=== PATIENT | male | born 1950 | race Caucasian/White ===

== ENCOUNTER 2020-03-09 14:06 | Outpatient (CLI) | payer MEDICARE, SELFPAY ==
[2020-03-09 15:24] LABS: Alanine Aminotransferase 27 U/L (16-63); Albumin Level 3.6 g/dL (3.4-5.0); Alkaline Phosphatase 78 U/L (46-116); Anion Gap 9.8 mmol/L (7-16); Aspartate Amino Transferase 16 U/L (15-37); Bilirubin,Total 0.4 mg/dL (0.00-1.00); Blood Urea Nitrogen 12 mg/dL (7-18); Calcium 8.6 mg/dL (8.5-10.1); Carbon Dioxide 31 mmol/L (21-32); Chloride 106 mmol/L (98-108); Estimated Glomerular Filt Rate > 60; Glucose 107 mg/dL (70-99); Osmolality Calculated 293 mOsm/kg (285-295); Potassium 4.8 mmol/L (3.5-5.1); Prostate Specific Antigen 3.7 ng/mL (< OR = 4.0); Sodium 142 mmol/L (136-145); Total Protein 6.6 g/dL (6.4-8.2)
== END 2020-03-09 14:07 | disposition home or self-care (01) ==
LOC: CHSLAB 14:15
PROVIDERS: PCP Internal Medicine; Visit Provider Urology
DX: R97.20 Elevated prostate specific antigen [PSA] (principal)
CPT/HCPCS: 36415; 80053; 84153

== ENCOUNTER 2021-03-03 07:01 | Outpatient (CLI) | payer MEDICARE, SELFPAY ==
[2021-03-03 09:02] LABS: Alanine Aminotransferase 26 U/L (16-63); Albumin Level 3.8 g/dL (3.4-5.0); Alkaline Phosphatase 69 U/L (46-116); Anion Gap 7 mmol/L (8-16); Aspartate Amino Transferase 11 U/L (15-37); Bilirubin,Total 0.6 mg/dL (0.00-1.00); Blood Urea Nitrogen 16 mg/dL (7-18); Calcium 8.8 mg/dL (8.5-10.1); Carbon Dioxide 30 mmol/L (21-32); Chloride 108 mmol/L (98-108); Estimated Glomerular Filt Rate > 60; Glucose 101 mg/dL (70-99); Osmolality Calculated 301 mOsm/kg (285-295); Potassium 4.6 mmol/L (3.5-5.1); Prostate Specific Antigen 3.9 ng/mL (< OR = 4.0); Sodium 145 mmol/L (136-145); Total Protein 6.7 g/dL (6.4-8.2)
== END 2021-03-03 07:02 | disposition home or self-care (01) ==
PROVIDERS: PCP Internal Medicine; Visit Provider Urology
DX: R97.20 Elevated prostate specific antigen [PSA] (principal)
CPT/HCPCS: 36415; 80053; 84153

== ENCOUNTER 2021-04-19 07:18 | Outpatient (CLI) | payer MEDICARE, SELFPAY ==
[2021-04-19 07:59] LABS: Add Urine Microscopic? NO; Appearance Urine Clear (Clear); Bilirubin Urine Negative (Negative); Blood Urine Negative (Negative); Color Urine Light Yellow (Yellow); Glucose Urine UA Negative (Negative); Ketones Urine Negative (Negative); Leukocyte Esterase Ur Negative (Negative); Nitrate Urine Negative (Negative); Protein Urine Negative (Negative); Specific Grav Ur 1.015 (1.010-1.020); Urobilinogen Urine 0.2 mg/dL (0.2-1.0); pH Urine 5.5 (5.0-8.0)
[2021-04-19 08:03] LABS: Hemoglobin A1C 5.4 % (<5.7)
[2021-04-19 08:08] LABS: Creatinine Urine 88.86 mg/dL (40-278); MALB Creatinine Ratio 14.6 mg/g (0-30); Microalbumin Urine Random < 13.0 mg/L
[2021-04-19 08:46] LABS: Alanine Aminotransferase 45 U/L (16-63); Albumin Level 3.9 g/dL (3.4-5.0); Alkaline Phosphatase 66 U/L (46-116); Anion Gap 6 mmol/L (8-16); Aspartate Amino Transferase 17 U/L (15-37); Bilirubin,Total 0.7 mg/dL (0.00-1.00); Blood Urea Nitrogen 11 mg/dL (7-18); Calcium 9.2 mg/dL (8.5-10.1); Carbon Dioxide 30 mmol/L (21-32); Chloride 109 mmol/L (98-108); Cholesterol 205 mg/dL (0-200); Creatine Kinase 59 U/L (39-308); Estimated Glomerular Filt Rate > 60; Glucose 105 mg/dL (70-99); HDL Direct 39 mg/dL (40-60); LDL Cholesterol Calculated 141 mg/dL (<130); Osmolality Calculated 299 mOsm/kg (285-295); Potassium 5.5 mmol/L (3.5-5.1); Prostate Specific Antigen 5.3 ng/mL (< OR = 4.0); Sodium 145 mmol/L (136-145); Total Protein 7.1 g/dL (6.4-8.2); Triglycerides 126 mg/dL (0-150)
== END 2021-04-19 07:19 | disposition home or self-care (01) ==
LOC: CHSLAB 07:21
PROVIDERS: PCP Internal Medicine; Visit Provider Internal Medicine
DX: R73.01 Impaired fasting glucose (principal); R97.20 Elevated prostate specific antigen [PSA]; E78.2 Mixed hyperlipidemia
CPT/HCPCS: 36415; 80053; 80061; 81003; 82043; 82550; 83036; 84153

== ENCOUNTER 2021-05-06 03:15 | Emergency (ER) | payer MEDICARE, OTHER, SELFPAY ==
--- NOTE | ~2021-05-06 | XR_ITS ---
EXAMINATION: XR chest 1V portable INDICATION: Cough TECHNIQUE: Portable AP chest at 0356 hours COMPARISON: None available FINDINGS: There are airspace opacities of the left lung base. No pleural effusion or pneumothorax is identified. The heart size is normal for technique. IMPRESSION: 1. Left basilar airspace opacity, consistent with atelectasis versus pneumonia. Reviewed, dictated and finalized at location A.
[2021-05-06 03:38] VITALS: BP 162/70; PULSE 79; RESP 18; TEMP 36.6; O2SAT 94
--- NOTE | 2021-05-06 03:47 | ED.GENADULT ---
HPI - General Adult General Chief complaint: Unspecified Stated complaint: Cough Source: patient Mode of arrival: ambulatory Limitations: no limitations History of Present Illness HPI narrative: Jr i s a 70M with a PMH high cholesterol and depression that came to the emergency department with a sore throat and cough. It started yesterday morning and has become worse. It is worse with swallowing and coughing. He denies CP, SOB, fevers, chills, nausea and vomiting. He has not had his COVID vaccine but denies sick contacts. Related Data Home Medications Medication Instructions Recorded Confirmed escitalopram oxalate [Lexapro] 10 mg PO DAILY 05/06/21 05/06/21 pravastatin See Rx Instructions .ROUTE .COMPLEX 05/06/21 05/06/21 Allergies Allergy/AdvReac Type Severity Reaction Status Date / Time No Known Allergies Allergy Verified 05/06/21 03:35 Review of Systems Constitutional: Constitutional: Reports no additional constitutional complaints Eyes: Eyes: Reports no additional eye complaints ENT: Reports as per HPI Cardiovascular: Cardiovascular: Reports no additional cardiovascular complaints Respiratory: Respiratory: Reports no additional respiratory complaints Gastrointestinal: Gastrointestinal: Reports no additional gastrointestinal complaints Genitourinary: Genitourinary: Reports no additional male genitourinary complaints Musculoskeletal: Musculoskeletal: Reports no additional musculoskeletal complaints Integumentary/Breasts: Skin/Breast: Reports system reviewed and no additional complaints, except as docu Neurologic: Reports system reviewed and no additional complaints, except as documented Psychiatric: Psychiatric: Reports no additional psychiatric complaints Endocrine: Endocrine: Reports no additional endocrine complaints Hematologic/Lymphatic: Hematologic/Lymphatic: Reports no additional hematologic/lymphatic complaints Allergic/Immunologic: Allergic/Immunologic: Reports no additional allergic/immunologic complaints Exam Const: General: cooperative, healthy appearing, comfortable, no acute distress and well developed HENMT: Head: normal to inspection Ears: hearing grossly normal bilaterally, external ears normal and TM's normal bilaterally General nose exam: Normal external nose present and Abnormal mucous membranes and turbinates present boggy and erythematous Face and sinus: normal facial exam Mouth: Yes Normal oral and palatal mucosa present and Yes tongue normal Throat: posterior oropharynx normal Eyes: General: appearance normal, both eyes and all related structures Neck: Neck: normal visual inspection Chest: Chest palpation & inspection: normal inspection of the chest Resp: Effort & Inspection: normal respiratory effort and able to speak in complete sentences Cardio: Rate: regular rate Rhythm: regular rhythm Heart sounds: S1 normal heart sound present and S2 normal heart sound present GI: Inspection: normal to inspection GI Palp: No abdominal tenderness Auscultation: normal bowel sounds Back/Spine/Pelvis: Back: no CVA tenderness Skin: General skin exam: normal color and no rashes or lesions noted Neuro: General: oriented to person, oriented to place and oriented to time Cognition (Neuro): normal cognition Speech: normal speech Gait exam (Neuro): Normal gait present Extrem: General: normal to inspection Psych: Appearance: grossly normal Mental Status: mental status grossly normal Course Course Emergency Course: Tino was given lidocaine for his sore throat. He tested positive for COVID. He is interested in the Casirivimab and Imdevimab to prevent progression to severe infection. We discussed how it is only temporarily approved by the FDA but he still wants it. It was administered and he was discharged to follow up with h is PCP. Vital Signs Vital signs: Vital Signs Temperature 97.8 F 05/06/21 03:38 Pulse Rate 79 05/06/21 03:38 Respiratory Rate 18
[2021-05-06 03:54] LABS: Basophils Absolute Auto 0.01 K/mm3 (0.00-0.10); Basophils Percent Auto 0.2 % (0.0-1.0); Hemoglobin 14.7 g/dL (12.4-15.3); Immature Granulocyte Absolute 0.02 K/mm3 (0.00-0.00); Immature Granulocyte Percent A 0.3 % (0.0-0.0); Lymphocytes Absolute Auto 0.71 K/mm3 (1.10-4.50); Lymphocytes Percent Auto 10.7 % (18.0-42.0); Mean Corpuscular HGB Conc 34.2 g/dL (32.0-36.0); Mean Corpuscular Hemoglobin 34.2 pg (27.0-31.0); Mean Platelet Volume 9.7 fl (8.7-11.0); Monocytes Absolute Auto 0.73 K/mm3 (0.10-0.90); Neutrophils Absolute Auto 5.1 K/mm3 (1.7-7.2); Neutrophils Percent Auto 77.8 % (50.0-70.0); Platelet Count Result 118 K/mm3 (150-420); Red Cell Distribution Width 12.5 % (11.6-14.4); White Blood Count 6.6 K/mm3 (4.8-10.8)
[2021-05-06 03:58] LABS: SARS-CoV-2 Ag Positive (Negative)
[2021-05-06 03:59] LABS: Influenza Control Valid (Valid)
[2021-05-06] MEDS: LIDOCAINE HCL 2% VISC SOLN 15 ML UDC PO (04:07)
[2021-05-06 04:24] LABS: Alanine Aminotransferase 23 U/L (16-63); Albumin Level 3.7 g/dL (3.4-5.0); Alkaline Phosphatase 64 U/L (46-116); Anion Gap 9 mmol/L (8-16); Aspartate Amino Transferase 13 U/L (15-37); Bilirubin,Total 0.5 mg/dL (0.00-1.00); Blood Urea Nitrogen 19 mg/dL (7-18); Calcium 8.4 mg/dL (8.5-10.1); Carbon Dioxide 30 mmol/L (21-32); Chloride 104 mmol/L (98-108); Estimated CRCL calculation 66 ml/min; Estimated Glomerular Filt Rate > 60; Glucose 128 mg/dL (70-99); Osmolality Calculated 300 mOsm/kg (285-295); Potassium 4.4 mmol/L (3.5-5.1); Sodium 143 mmol/L (136-145); Total Protein 6.9 g/dL (6.4-8.2)
[2021-05-06] MEDS: SODIUM CHLORIDE 0.9% IV 250 ML (05:00)
[2021-05-06] MEDS: ACETAMINOPHEN 325 MG TABLET 650 MG (05:00)
[2021-05-06] MEDS: FAMOTIDINE 20 MG TABLET (05:00)
[2021-05-06] MEDS: diphenhydrAMINE HCl CAP 25 MG CAPSULE (05:00)
[2021-05-06 05:30] VITALS: BP 144/80; PULSE 88; RESP 18; O2SAT 96
[2021-05-06 06:00] VITALS: BP 138/89; PULSE 78; RESP 18; O2SAT 94
[2021-05-06 07:08] VITALS: BP 140/88; PULSE 72; RESP 18; TEMP 37.2; O2SAT 94
== END 2021-05-06 07:09 | disposition home or self-care (01) ==
PROVIDERS: Emergency Provider Family Medicine; PCP Internal Medicine
DX: U07.1 COVID-19 (principal)
CPT/HCPCS: 36415; 71045; 80053; 85025; 87081; 87426; 87804; 87880; 96360; 99283; A9270; C9803; J7050

== ENCOUNTER 2021-11-10 03:48 | Emergency (ER) | payer MEDICARE, OTHER, SELFPAY ==
--- NOTE | ~2021-11-10 | CT_ITS ---
EXAMINATION: CT abdomen pelvis wo con DATE: 11/10/2021 05:08 INDICATION: Right flank pain. History kidney stones. TECHNIQUE: Computed tomography (CT) of the abdomen and pelvis was performed without intravenous contr ast. Automated exposure control and iterative reconstruction technique were employed. Exam dose: 276 .35 mGy-cm total exam DLP. COMPARISON: None. FINDINGS: Bilateral pleural calcifications consistent with prior asbestos exposure. There is no infil trate or consolidation at the lung bases. Borderline heart size. No pericardial or pleural effusion. Small sliding hiatal hernia. There are approximately 4 1 cm or smaller areas of hypoattenuation of the liver, at the hepatic dome and left hepatic lobe, too small to definitively characterize on this limited noncontrast examination . No prior examinations are available for comparison. The gallbladder is present. No pericholecystic fluid or fat stranding. No bile duct or pancreatic suzy t dilatation. No pancreatic mass lesion. There is a single punctate calcification of the pancreatic h ead. Normal splenic size. Normal morphology of the adrenal glands. There are several exophytic cysts of the right kidney, measuring up to 5 cm dimension. 2 cm exophytic upper pole left renal cyst.. There is a 5 mm obstructing calculus at the right ureteropelvic junction, with mild right hydroureter process. Approximately 4.5 x 6 mm upper pole left renal nonobstructing calculus there are 2 pinpoint lower alexis e nonobstructing left renal calculi and one approximately 2 mm lower pole right renal nonobstructing calculus. Prostate enlargement and calcification. There is moderate thickening of the urinary bladder wall. Mild fat-containing left inguinal hernia. There is diverticulosis of the colon; no CT evidence of diverticulitis. No bowel obstruction, bowel w all thickening, pneumatosis or intraperitoneal free air. No suspicious osteolytic or osteoblastic lesions. IMPRESSION: 5 mm obstructing right ureteropelvic junction calculus with mild right hydronephrosis Bilateral nonobstructive nephrolithiasis Bilateral renal cysts Pleural calcifications consistent with prior asbestos exposure Small sliding hiatal hernia Diverticulosis of the colon; no evidence of diverticulitis Reviewed, dictated and finalized at [facility]. Reviewed, dictated and finalized at location A. IMPRESSION: 5 mm obstructing right ureteropelvic junction calculus with mild r ight hydronephrosis Bilateral nonobstructive nephrolithiasis Bilateral renal cysts Pleural calcifications consistent with prior asbestos exposure Small sliding hiatal hernia Diverticulosis of the colon; no evidence of diverticulitis
[2021-11-10 04:01] VITALS: BP 175/80; PULSE 46; RESP 19; TEMP 36.5; O2SAT 98
--- NOTE | 2021-11-10 04:07 | ED.ABDPAIN ---
HPI - Abdominal Pain General Chief Complaint: Abdominal Pain Stated Complaint: Kidney Stone Time Seen by Provider: 11/10/21 04:07 Source: patient Mode of arrival: ambulatory Limitations: no limitations History of Present Illness HPI narrative: this is a 71-year-old gentleman with history of hypertension, hyperlipidemia, remote history of kidney stones presents with right flank pain with no radiation of his pain, no nausea or vomiting no dysuria or hematuria no fever chills no diarrhea constipation. Currently no chest pain no shortness of breath, and has a history of appendectomy. MD elicited complaint: flank pain Pertinent past history: kidney stones Onset (ago): hour(s) Pain Consistency: constant Location: R flank Severity: moderate Pain scale (0-10): 5 Quality: aching Exacerbating factors: nothing Relieving factors: nothing Related Data Home Medications Medication Instructions Recorded Confirmed escitalopram oxalate [Lexapro] 10 mg PO DAILY 05/06/21 11/10/21 pravastatin See Rx Instructions .ROUTE .COMPLEX 05/06/21 11/10/21 Allergies Allergy/AdvReac Type Severity Reaction Status Date / Time IVP dye Allergy Intermediate Redness of Uncoded 11/10/21 04:00 Skin Review of Systems Review of Systems: All systems reviewed & are unremarkable except as noted in HPI and below PMFSH Past Medical History Medical History HLD (hyperlipidemia) HTN (hypertension) Exam Const: General: no acute distress and alert Orientation/consciousness: patient oriented x3 HENMT: Head: normal to inspection Eyes: Conjunctivae: conjunctivae normal Pupils: Equal, round and reactive pupils present Neck: Neck: normal visual inspection, no lymphadenopathy and no meningeal signs Chest: Chest palpation & inspection: normal inspection of the chest Resp: Effort & Inspection: normal respiratory effort Auscultation: clear to auscultation bilaterally Cardio: Rate: regular rate Rhythm: regular rhythm GI: GI Palp: Yes Soft to palpation Percussion: Yes normal to percussion : General: Yes CVA tenderness Urinary Catheter: Urinary Catheter: patent and draining Back/Spine/Pelvis: Back: CVA tenderness Skin: General skin exam: normal color Rashes: no rashes Neuro: General: patient oriented x3, moves all extremities, no meningeal signs and no focal motor deficits Extrem: General: normal to inspection and no pedal edema Psych: Mental Status: mental status grossly normal Affect: normal affect Attitude: cooperative Course Course Emergency Course: patient started on IV fluids given Toradol 30mg IV, collected a urine specimen and blood work which were reviewed with the patient, patient had a CT scan of the abdomen out contrast and that was reviewed with patient. , after re-evaluation of the patient is pain has improved with the IV Toradol. reassessment of patient pain level had improved down to 3/10 but is increasing and to about a 6/10 with patient 4mg of morphine, the CT scan was reviewed which showed a 5mm stone that is causing mild hydronephrosis in the ureteropelvic junction will give the patient ceftriaxone does. Critical Care Time Critical Care Time Critical Care Time: No Discharge Plan Discharge Clinical Impression: Urolithiasis Qualifiers: Urinary calculus location: ureter Qualified Code(s): N20.1 - Calculus of ureter Patient Disposition: Home, Self-Care Condition: Stable Instructions: Antibiotic Form, Kidney Stones (ED) Additional Instructions: Take medicine as prescribed and follow-up with primary care physician within the next week for further evaluation & treatment. Prescriptions: New sulfamethoxazole-trimethoprim [Bactrim DS] 800-160 mg tablet 1 tablet PO Q12H 7 Days Qty: 14 RF: 0 tamsulosin [Flomax] 0.4 mg capsule 0.4 mg PO DAILY Qty: 7 RF: 0 tramadol [Ultram] 50 mg tablet 50 mg PO Q6H PRN (Reason: pain) Qty: 20 RF: 0
[2021-11-10] MEDS: KETOROLAC 30 MG/ML VIAL (*BKC) IV PUSH (04:24)
[2021-11-10] MEDS: SODIUM CHLORIDE 0.9% IV 1,000 ML 999 ML IV CONT (04:24)
[2021-11-10 04:30] VITALS: BP 159/71
[2021-11-10 04:33] LABS: Basophils Absolute Auto 0.01 K/mm3 (0.00-0.10); Basophils Percent Auto 0.2 % (0.0-1.0); Eosinophils Absolute Auto 0.19 K/mm3 (0.02-0.50); Eosinophils Percent Auto 3.1 % (1.0-6.0); Hematocrit 46.3 % (37.0-46.0); Hemoglobin 16.1 g/dL (12.4-15.3); Immature Granulocyte Absolute 0.01 K/mm3 (0.00-0.00); Immature Granulocyte Percent A 0.2 % (0.0-0.0); Lymphocytes Absolute Auto 0.94 K/mm3 (1.10-4.50); Lymphocytes Percent Auto 15.2 % (18.0-42.0); Mean Corpuscular HGB Conc 34.8 g/dL (32.0-36.0); Mean Corpuscular Hemoglobin 34.7 pg (27.0-31.0); Mean Corpuscular Volume 99.8 fL (78.0-102.0); Mean Platelet Volume 10.4 fl (8.7-11.0); Monocytes Absolute Auto 0.63 K/mm3 (0.10-0.90); Monocytes Percent Auto 10.2 % (2.0-11.0); Neutrophils Absolute Auto 4.4 K/mm3 (1.7-7.2); Neutrophils Percent Auto 71.1 % (50.0-70.0); Platelet Count Result 177 K/mm3 (150-420); Red Blood Count 4.64 M/mm3 (4.70-6.10); Red Cell Distribution Width 12.5 % (11.6-14.4); White Blood Count 6.2 K/mm3 (4.8-10.8)
[2021-11-10 04:49] LABS: Alanine Aminotransferase 30 U/L (16-63); Albumin Level 3.7 g/dL (3.4-5.0); Alkaline Phosphatase 65 U/L (46-116); Anion Gap 10 mmol/L (8-16); Aspartate Amino Transferase 15 U/L (15-37); Bilirubin,Total 0.8 mg/dL (0.00-1.00); Blood Urea Nitrogen 14 mg/dL (7-18); Calcium 8.6 mg/dL (8.5-10.1); Carbon Dioxide 27 mmol/L (21-32); Chloride 104 mmol/L (98-108); Estimated CRCL calculation 67 ml/min; Estimated Glomerular Filt Rate > 60; Glucose 116 mg/dL (70-99); Osmolality Calculated 293 mOsm/kg (285-295); Potassium 3.9 mmol/L (3.5-5.1); Sodium 141 mmol/L (136-145)
[2021-11-10 05:35] LABS: Add Urine Microscopic? YES; Appearance Urine Clear (Clear); Bilirubin Urine Negative (Negative); Blood Urine 2+ (Negative); Color Urine Light Yellow (Yellow); Glucose Urine UA Negative (Negative); Ketones Urine Negative (Negative); Leukocyte Esterase Ur Negative (Negative); Nitrate Urine Negative (Negative); Protein Urine Negative (Negative); Specific Grav Ur 1.025 (1.010-1.020); Urobilinogen Urine 0.2 mg/dL (0.2-1.0)
[2021-11-10 05:45] LABS: Bacteria Urine Trace /hpf; Mucus Urine Rare /lpf; Squamous Epithelial Cell Urine None seen /hpf (Few); WBC Urine 0-3 /hpf (0-3)
[2021-11-10] MEDS: MORPHINE SULFATE (*CRX) 4 MG/ML INJ IV PUSH (06:29)
[2021-11-10 07:14] VITALS: BP 132/63; PULSE 57; RESP 18; TEMP 36.7; O2SAT 94
== END 2021-11-10 07:16 | disposition home or self-care (01) ==
PROVIDERS: Emergency Provider Emergency Medicine; PCP Internal Medicine
DX: N20.1 Calculus of ureter (principal); E78.5 Hyperlipidemia, unspecified; I10 Essential (primary) hypertension
CPT/HCPCS: 36415; 74176; 80053; 81001; 85025; 96361; 96365; 96375; 99284; J0696; J1885; J2270; J7030

== ENCOUNTER 2021-11-16 13:32 | Outpatient (CLI) | payer MEDICARE, SELFPAY ==
--- NOTE | ~2021-11-16 | US_ITS ---
EXAMINATION: US retroperitoneal comp DATE: 11/16/2021 14:06 INDICATION: Right ureteral stone. TECHNIQUE: Multiple ultrasound grayscale images of the kidneys were obtained. COMPARISON: CT abdomen and pelvis 11/10/2021 FINDINGS: The right kidney measures 12.7 x 6.1 x 5.7 cm. The left kidney measures 11.3 x 5.2 x 5.3 cm. The kidn eys demonstrate normal parenchymal echogenicity. There are cysts in the kidneys measuring up to 5.1 c m on the right. There is mild right hydronephrosis. The bladder is normal. IMPRESSION: 1. Stable mild right hydronephrosis. Reviewed, dictated and finalized at location A.
== END 2021-11-16 13:33 | disposition home or self-care (01) ==
LOC: CHSIMG 13:36
PROVIDERS: PCP Internal Medicine; Visit Provider Internal Medicine
DX: N20.1 Calculus of ureter (principal)
CPT/HCPCS: 76770

== ENCOUNTER 2021-11-22 09:07 | Emergency (ER) | payer MEDICARE, SELFPAY ==
--- NOTE | ~2021-11-22 | CT_ITS ---
EXAMINATION: CT abdomen pelvis wo con DATE: 11/22/2021 09:55 INDICATION: Right kidney stone. Right flank pain. TECHNIQUE: Computed tomography (CT) of the abdomen and pelvis was performed without intravenous contr ast. Automated exposure control and iterative reconstruction technique were employed. The dose-length product was 452.67 mGy-cm. COMPARISON: CT abdomen and pelvis 11/10/2021 FINDINGS: The visualized portions of the lung bases demonstrate mild atelectasis and mild chronic nita g disease. There are calcified pleural plaques bilaterally, which may be seen with asbestosis exposur e. The heart size is normal. No pericardial effusion. There are cysts in the liver measuring up to 10 mm. The gallbladder is normal. Calcifications in the spleen are consistent with old granulomatous di sease. The pancreas and adrenal glands are normal. There are cysts in the kidneys measuring up to 5.0 cm on the right. There are 1 mm and 3 mm stones in right kidney. There is mild right hydronephrosis and proximal hydroureter. There is a 4 mm stone in proximal right ureter where it crosses the iliac v essels. There are 3 stones in left kidney measuring up to 6 mm. The prostate is moderately enlarged. There are bilateral inguinal hernias containing fat. There are no dilated loops of bowel. There is di verticulosis of the colon without evidence of diverticulitis. The appendix is not visualized. There a re no pathologically enlarged lymph nodes. There is no free intraperitoneal fluid. There is mild thor acolumbar spondylosis. IMPRESSION: 1. 4 mm stone in proximal right ureter with mild right hydronephrosis and proximal hydroureter. 2. Bilateral nonobstructing kidney stones. Reviewed, dictated and finalized at location A. IMPRESSION: 1. 4 mm stone in proximal right ureter with mild right hydronephrosis and proxi mal hydroureter. 2. Bilateral nonobstructing kidney stones.
[2021-11-22 09:21] VITALS: BP 188/89; PULSE 61; RESP 16; TEMP 36; O2SAT 98
--- NOTE | 2021-11-22 09:24 | ED.ABDPAIN ---
HPI - Abdominal Pain General Chief Complaint: Urogenital-Male Stated Complaint: KIDNEY STONE Time Seen by Provider: 11/22/21 09:24 Source: patient History of Present Illness HPI narrative: 71-year-old male with a history of hypertension, dyslipidemia, COVID in April of 2021 presented to the ER on 11/10/2021 right ureteropelvic kidney 5 mm stone with mild hydronephrosis. He was discharged home on Flomax and Ultram. He presents to the ER with -- right flank pain MD elicited complaint: flank pain Pertinent past history: kidney stones Onset (ago): day(s) ( started 10 days ago but severe since this morning) Pain Consistency: intermittent Location: R flank Severity: severe Quality: aching Radiation: none Exacerbating factors: nothing Relieving factors: nothing Associated symptoms: denies other symptoms Related Data Home Medications Medication Instructions Recorded Confirmed escitalopram oxalate [Lexapro] 10 mg PO DAILY 05/06/21 11/10/21 pravastatin See Rx Instructions .ROUTE .COMPLEX 05/06/21 11/10/21 Allergies Allergy/AdvReac Type Severity Reaction Status Date / Time IVP dye Allergy Intermediate Redness of Uncoded 11/10/21 04:00 Skin Review of Systems Review of Systems: All systems reviewed & are unremarkable except as noted in HPI and below Constitutional: Constitutional: Reports as per HPI and Reports no additional constitutional complaints Eyes: Eyes: Reports as per HPI and Reports no additional eye complaints ENT: Reports system reviewed and no additional complaints, except as documented and Reports as per HPI Cardiovascular: Cardiovascular: Reports as per HPI and Reports no additional cardiovascular complaints Respiratory: Respiratory: Reports as per HPI and Reports no additional respiratory complaints Gastrointestinal: Gastrointestinal: Reports as per HPI and Reports no additional gastrointestinal complaints Genitourinary: Comments: right flank pain Musculoskeletal: Musculoskeletal: Reports no additional musculoskeletal complaints and Reports as per HPI Integumentary/Breasts: Skin/Breast: Reports system reviewed and no additional complaints, except as docu and Reports as per HPI Neurologic: Reports system reviewed and no additional complaints, except as documented and Reports as per HPI Psychiatric: Psychiatric: Reports no additional psychiatric complaints and Reports as per HPI Endocrine: Endocrine: Reports no additional endocrine complaints and Reports as per HPI Hematologic/Lymphatic: Hematologic/Lymphatic: Reports no additional hematologic/lymphatic complaints and Reports as per HPI Allergic/Immunologic: Allergic/Immunologic: Reports no additional allergic/immunologic complaints and Reports as per HPI PMFSH Past Medical History Medical History HLD (hyperlipidemia) HTN (hypertension) Ureteric stone of transplanted kidney Exam Const: General: alert Nutritional Appearance: well nourished Orientation/consciousness: patient oriented x3 Other: in distress secondary to pain HENMT: Head: normal to inspection Eyes: Conjunctivae: conjunctivae normal Pupils: Equal, round and reactive pupils present EOM: EOMs intact bilaterally Neck: Neck: normal visual inspection and no lymphadenopathy Chest: Chest palpation & inspection: normal inspection of the chest Resp: Effort & Inspection: normal respiratory effort Auscultation: clear to auscultation bilaterally Cardio: Rate: regular rate Rhythm: regular rhythm GI: Inspection: distended GI Palp: Yes Soft to palpation Other: no tenderness/rigidity / rebound. : Testes: Testes normal Back/Spine/Pelvis: Back: no CVA tenderness Skin: General skin exam: normal color Rashes: no rashes Neuro: General: patient oriented x3, moves all extremities and no meningeal signs Extrem: General: normal to inspection Psych: Mental Status: mental status grossly normal Affect: normal
[2021-11-22] MEDS: KETOROLAC 30 MG/ML VIAL (*BKC) IV PUSH (09:41)
[2021-11-22] MEDS: SODIUM CHLORIDE 0.9% IV 1,000 ML 999 ML IV CONT (09:42)
[2021-11-22 10:08] LABS: Basophils Absolute Auto 0.03 K/mm3 (0.00-0.10); Basophils Percent Auto 0.5 % (0.0-1.0); Eosinophils Absolute Auto 0.13 K/mm3 (0.02-0.50); Eosinophils Percent Auto 2.2 % (1.0-6.0); Hematocrit 42.8 % (37.0-46.0); Hemoglobin 14.8 g/dL (12.4-15.3); Immature Granulocyte Absolute 0.03 K/mm3 (0.00-0.00); Immature Granulocyte Percent A 0.5 % (0.0-0.0); Lymphocytes Absolute Auto 0.89 K/mm3 (1.10-4.50); Lymphocytes Percent Auto 14.9 % (18.0-42.0); Mean Corpuscular HGB Conc 34.6 g/dL (32.0-36.0); Mean Corpuscular Hemoglobin 34.7 pg (27.0-31.0); Mean Corpuscular Volume 100.5 fL (78.0-102.0); Mean Platelet Volume 9.6 fl (8.7-11.0); Monocytes Absolute Auto 0.53 K/mm3 (0.10-0.90); Monocytes Percent Auto 8.9 % (2.0-11.0); Neutrophils Absolute Auto 4.4 K/mm3 (1.7-7.2); Platelet Count Result 169 K/mm3 (150-420); Red Blood Count 4.26 M/mm3 (4.70-6.10); Red Cell Distribution Width 11.9 % (11.6-14.4)
[2021-11-22 10:15] LABS: Anion Gap 6 mmol/L (8-16); Blood Urea Nitrogen 11 mg/dL (7-18); Calcium 8.3 mg/dL (8.5-10.1); Carbon Dioxide 30 mmol/L (21-32); Chloride 104 mmol/L (98-108); Estimated Glomerular Filt Rate > 60; Glucose 104 mg/dL (70-99); Osmolality Calculated 289 mOsm/kg (285-295); Potassium 4.2 mmol/L (3.5-5.1); Sodium 140 mmol/L (136-145)
[2021-11-22] MEDS: HYDROmorphone HCL INJ (*CRX) 2 MG/ML VIAL 0.5 MG IV PUSH (10:19)
[2021-11-22] MEDS: ONDANSETRON INJ 4 MG/2 ML VIAL IV PUSH (10:22)
[2021-11-22 10:36] LABS: Add Urine Microscopic? NO
[2021-11-22 10:41] LABS: Appearance Urine Clear (Clear); Bilirubin Urine Negative (Negative); Blood Urine Negative (Negative); Color Urine Light Yellow (Yellow); Glucose Urine UA Negative (Negative); Ketones Urine Negative (Negative); Leukocyte Esterase Ur Negative (Negative); Nitrate Urine Negative (Negative); Protein Urine Negative (Negative); Specific Grav Ur 1.015 (1.010-1.020); Urobilinogen Urine 0.2 mg/dL (0.2-1.0); pH Urine 5.5 (5.0-8.0)
[2021-11-22 10:52] VITALS: BP 146/64; PULSE 60; RESP 18; TEMP 36.4; O2SAT 95
== END 2021-11-22 10:57 | disposition home or self-care (01) ==
PROVIDERS: Emergency Provider Internal Medicine Critical Care Medicine; PCP Internal Medicine
DX: N20.1 Calculus of ureter (principal); E78.5 Hyperlipidemia, unspecified; I10 Essential (primary) hypertension
CPT/HCPCS: 36415; 74176; 80048; 81003; 85025; 96361; 96374; 96375; 99284; J1170; J1885; J2405; J7030

== ENCOUNTER 2021-11-27 15:44 | Outpatient (CLI) | payer MEDICARE, SELFPAY ==
--- NOTE | ~2021-11-27 | XR_ITS ---
EXAM: XR abdomen/kub 1V HISTORY: RT URETERAL STONE COMPARISON: CT abdomen and pelvis 11/22/2021. FINDINGS: Pleural calcifications. Normal bowel gas pattern. The punctate bilateral renal stones seen in the prior study are not radiographic visible. Stable 6 mm left renal stone. A 4 mm right ureteral stone seen in the prior study is not visualized. IMPRESSION: The 4 mm ureteral stone seen in the prior CT has either passed or is not visible in these projections . Stable left nephrolithiasis. Reviewed, dictated and finalized at location K. IMPRESSION: The 4 mm ureteral stone seen in the prior CT has either passed or is not visibl e in these projections. Stable left nephrolithiasis.
== END 2021-11-27 15:45 | disposition home or self-care (01) ==
LOC: ANHIMG 15:49
PROVIDERS: PCP Internal Medicine; Visit Provider Urology
DX: N20.1 Calculus of ureter (principal)
CPT/HCPCS: 74018

== ENCOUNTER 2021-12-12 12:52 | Outpatient (CLI) | payer MEDICARE, SELFPAY ==
--- NOTE | ~2021-12-12 | CT_ITS ---
EXAMINATION: CT abdomen pelvis wo con DATE: 12/12/2021 13:09 INDICATION: Right ureteral stone follow-up TECHNIQUE: Computed tomography (CT) of the abdomen and pelvis was performed without intravenous contr ast. Automated exposure control and iterative reconstruction technique were employed. Exam dose: 427 .27 mGy-cm total exam DLP. COMPARISON: 11/27/2021 KUB 11/22/[address] abdomen pelvis FINDINGS: Previously reported 4 mm stone in right ureter at the upper sacral level on November 22, 2021 h as progressed a little further into the distal ureter. There is interval virtual resolution of proxim al right hydroureteronephrosis. Bilateral renal cysts and occasional bilateral renal calculi are unchanged since November 22, 2021 otherw ise. Hepatic cysts are again noted. The gallbladder is present. Normal splenic size. No pancreatic mass le dave, calcification or ductal dilatation. Normal morphology of the adrenal glands. Normal caliber of the abdominal aorta. No intraperitoneal or retroperitoneal or pelvic mass lesion or adenopathy or ascites. Prostate enlargement and calcification. The urinary bladder is relatively evacuated which may account for the moderately prominent thickening of the bladder wall. Mild sigmoid colon diverticulosis; no CT evidence of diverticulitis. No bowel obstruction or intraper itoneal free air. Bilateral fat-containing inguinal hernias, larger on the left. Bilateral pleural calcifications consistent with prior asbestos exposure. The lung bases are clear of infiltrate or consolidation. Heart size is upper normal size. No pericardial or pleural effusion. No suspicious osteolytic or osteoblastic lesions. 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 Reviewed, dictated and finalized at location A. 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
== END 2021-12-12 12:53 | disposition home or self-care (01) ==
LOC: CHSIMG 12:54
PROVIDERS: PCP Internal Medicine; Visit Provider Urology
DX: N20.1 Calculus of ureter (principal)
CPT/HCPCS: 74176

== ENCOUNTER 2021-12-27 14:24 | Outpatient (CLI) | payer MEDICARE, SELFPAY ==
--- NOTE | 2021-12-27 14:45 | ECG_ITS ---
Measurements Intervals [place] Rate: 64 P: 32 PA: 218 QRS: -1 QRSD: 98 T: 21 QT: 401 QTc: 416 Interpretive Statements SINUS RHYTHM WITH SINUS ARRHYTHMIA WITH FIRST DEGREE AV BLOCK LEFT VENTRICULAR HYPERTROPHY WITH ST-T CHANGE BASELINE WANDER- II, III, AVR, AVF, V4-V6 ABNORMAL ECG Electronically Signed On 12-27-2021 14:51:16 CDT by Silas Arce D.O.
== END 2021-12-27 14:25 | disposition home or self-care (01) ==
LOC: CHSCARD 14:28
PROVIDERS: PCP Internal Medicine; Visit Provider Anesthesiology
DX: N20.1 Calculus of ureter (principal); E78.00 Pure hypercholesterolemia, unspecified
CPT/HCPCS: 93005

== ENCOUNTER 2021-12-28 01:02 | Day surgery (SDC) | payer MEDICARE, SELFPAY ==
--- NOTE | 2021-12-20 13:44 | PC.NURSE ---
Report to the Outpatient Waiting Room, entrance under the green pavilion located off [facility], at time _0800 on date _12/28/21 . OR Time: __1000 . - You and your visitor will be asked a series of questions to screen for COVID 19 for your protection. - Only one visitor is allowed at this time. - The patient visitor is requested to leave or wait in car when not with patient. - A mask is required within the hospital. Patients may have clear liquids (water, carbonated beverages, clear teas, apple juice) until 3 hours prior to surgery with a maximum of 20 ounces. - No food from midnight until time of surgery - Infants may have breast milk until 4 hours before surgery, infant formula 6 hours prior to surgery. - Children will be allowed to drink immediately following surgery. If applicable, please bring a bottle or sippy cup to assist with drinking. Juice, water, soda, and popsicles are readily available. For infants on formula, please bring formula the day of surgery. Pacifiers are allowed. Take the following medications with a SIP of water the morning of surgery: ____LEXAPRO Medications to discontinue per physician PT STATES ALL VITAMINS AND SUPPLEMENTS 7 DAYS PRE OP PER DR ORTIZ Date to take last dose___12/20/21 Please no make-up, nail belgian, hairspray, perfume, deodorant, or body powder the day of surgery. No jewelry (including any body piercings) or valuables the day of surgery, leave them at home. Please take a shower or bath the night before, or the morning of, surgery with an antibacterial soap. Wear comfortable, loose fitting clothing. Children are encouraged to wear pajamas. - Jewelry must be removed prior to entering the operating room. Rings and piercings that are not removed may be cut off. - The hospital will not accept responsibility for valuables. - Please leave all valuables, including medications, at home the day of surgery. If you are going home after surgery, a licensed pharmacy delivery driver must drive you home. - NO public transportation without another adult. - We recommend that an adult stay with you for 24 hours following discharge. - We also recommend that you do not drive, make important decision, drink alcoholic beverages, or take any drugs that were not prescribed by your health care provider for at least 24 hours after your discharge time. For Pediatric surgeries, we recommend two adults accompany the child home (only one inside the building at this time). Follow any additional instructions given to you from your surgeon. If you or anyone in your household have experienced Covid symptoms in the past week, please notify your surgeon or the nurse liaison at the phone number below for possible testing. Telephone instructions given to _PATIENT and asked if any additional questions and then verbalized understanding. Patient advised to call surgeon office or pre surgery nurse liaison [phone] if any additional questions.
[2021-12-20 14:52] VITALS: BMI 31.3
--- NOTE | 2021-12-25 07:19 | PM.HPGS ---
History of Present Illness History of Present Illness Consent: Risks, benefits, and alternatives have been discussed and questions answered. Patient agrees to proceed with procedure. Chief complaint: Rt Distal Ureteral Stone Narrative: Tino García is a 71 year old male, without prior known history of urolithiasis who has had a 3-4 week history of intermittent right flank. Initial imaging on November 10, 2021 showed a 4 mm stone in his proximal right ureter. On subsequent imaging a couple weeks later was in the mid ureter and, by CT scan on 12/12, it was in the distal right ureter. After discussion of options he has elected proceed with cystoscopy with right ureteroscopy, ureteral stone extraction, possible laser lithotripsy, possible retrograde pyelogram and stent placement. He is aware the risk including, but not limited to, ureteral injury, hematuria. Review of Systems Cardiovascular: Cardiovascular: Denies chest pain, Denies lightheadedness, Denies palpitations and Denies dyspnea Respiratory: Respiratory: Denies dyspnea Gastrointestinal: Gastrointestinal: Denies diarrhea, Denies nausea and Denies vomiting Genitourinary: Genitourinary: Denies hematuria and Denies dysuria Endocrine: Endocrine: Denies palpitations [facility] Past Medical History Medical History HLD (hyperlipidemia) HTN (hypertension) Ureteric stone of transplanted kidney Social History Social History Smoking status: Never smoker Additional smoking assessment comments: DENIES ANY FORM OF TOBACCO USE Living arrangements: with family Spiritual care concerns: No Meds Home Medications and Allergies Home Medications Medication Instructions Recorded Confirmed Type escitalopram oxalate [Lexapro] 10 mg PO DAILY 05/06/21 12/20/21 History hydrocodone-acetaminophen 1 tablet PO Q8H PRN #20 tablet 11/22/21 12/20/21 Rx ascorbic acid (vitamin C) 500 mg PO DAILY 12/20/21 12/20/21 History multivitamin [Multi-Vitamin] 1 tablet PO DAILY 12/20/21 12/20/21 History omega-3 fatty acids [Fish Oil] 1,000 mg PO DAILY 12/20/21 12/20/21 History rosuvastatin 10 mg PO QPM 12/20/21 12/20/21 History Allergies Allergy/AdvReac Type Severity Reaction Status Date / Time IVP dye Allergy Intermediate Redness of Uncoded 12/20/21 13:28 Skin Assessment and Plan Assessment and plan (1) Right ureteral stone: Code(s): N20.1 - Calculus of ureter Status: Acute Assessment and Plan: Cystoscopy, right ureteroscopy with stone extraction, possible laser lithotripsy, retrograde pyelogram and right stent placement
[2021-12-28] VITALS (10 sets, daily range): BP systolic 116–152; BP diastolic 57–90; PULSE 52–66; RESP 12–18; TEMP 36.2–36.6; O2SAT 95–98
--- NOTE | ~2021-12-28 | XR_ITS ---
EXAMINATION: XR stent kub - surgery DATE: 12/28/2021 10:11 INDICATION: Right internal ureteral stent placement TECHNIQUE: Fluoroscopic images from a right internal ureteral stent placement are submitted for raul garcia 77 seconds of fluoroscopy time. 2 fluoroscopic images. FINDINGS: There is a right double-J internal ureteral stent projecting in expected position, with proximal [place] loop at the level of the renal pelvis and distal loop in the pelvis within the bladder lumen. IMPRESSION: 1. Right internal ureteral stent placement. Please refer to real-time procedural findings for phoenix morin. Reviewed, dictated and finalized at location A. IMPRESSION: 1. Right internal ureteral stent placement. Please refer to real-time procedu ral findings for details.
--- NOTE | 2021-12-28 06:23 | WPDHPUPDATE1 ---
History and Physical Update Update Date/Time: 12/28/21 06:23 History and Physical has been reviewed, including an updated exam of the patient. There are NO changes in the patient's condition. Risks, benefits, and alternatives have been discussed and questions answered. Patient agrees to proceed with procedure.
[2021-12-28] MEDS: LACTATED RINGERS 1,000 ML 30 ML IV CONT ×2 (08:30→10:40)
--- NOTE | 2021-12-28 08:46 | P.PNAN_ITS ---
Anes - Initial Pre Proc Eval Procedure: Operation Date: 12/28/21 10:00 Proposed Procedures p Cystoscopy, Right Ureteroscopy with Right Stone Extraction, Right Retrograde Pyelogram, Right Stent Placement, Possible Laser Lithotripsy - Nishant Rivera MD Date/Time: 12/28/21 08:46 Surgeon: Nishant Rivera MD Pre Op Diagnosis: Rt Distal Ureteral Stone Patient Data Age: 71 Gender: M Height: 1.7 m Weight: 90.75 kg Allergies Allergy/AdvReac Type Severity Reaction Status Date / Time IVP dye Allergy Intermediate Redness of Uncoded 12/20/21 13:28 Skin Home Medications Medication Instructions Recorded Confirmed Type escitalopram oxalate [Lexapro] 10 mg PO DAILY 05/06/21 12/20/21 History hydrocodone-acetaminophen 1 tablet PO Q8H PRN #20 tablet 11/22/21 12/20/21 Rx ascorbic acid (vitamin C) 500 mg PO DAILY 12/20/21 12/20/21 History multivitamin [Multi-Vitamin] 1 tablet PO DAILY 12/20/21 12/20/21 History omega-3 fatty acids [Fish Oil] 1,000 mg PO DAILY 12/20/21 12/20/21 History rosuvastatin 10 mg PO QPM 12/20/21 12/20/21 History Patient hx anesthesia problems: none Family hx anesthesia problems: none Results Review: All pre-operative results and documents have been reviewed as part of the pre-operative evaluation. [facility] Past Medical History Medical History Depression HLD (hyperlipidemia) Ureteric stone of transplanted kidney Social History Social History Smoking status: Never smoker Additional smoking assessment comments: DENIES ANY FORM OF TOBACCO USE Living arrangements: with family Spiritual care concerns: No Anes - Eval Final PreProcedure Day of Procedure 12/28/21 08:46 Patient weight: obese Heart: regular rate and rhythm Lungs: clear to auscultation Airway: Mallampati scale class II Neurological: alert and oriented Last oral intake: >/= 8 hours ASA classification: II Emergent: no Anesthetic plan: proceed Anesthesia type and monitoring: general LMA and standard monitoring Results Review: All pre-operative results and documents have been reviewed as part of the pre-operative evaluation. Informed Consent: The patient's anesthetic plan and its attendant risks and benefits were discussed with the patient/family/POA. Questions were solicited and answers provided to the satisfaction of the patient/family/POA.
[2021-12-28] MEDS: ceFAZolin 2 GM/D5W 50 ML 2 GM/50 ML BAG IVPB (09:24)
[2021-12-28] MEDS: LIDOCAINE HCL 2% GEL UROJET 10 ML PKG MUCOUS MEM (09:38)
--- NOTE | 2021-12-28 10:14 | W.PM.PROC2 ---
Procedure Note - Detailed Date of Procedure 12/28/21 Pre-op Diagnosis Rt Distal Ureteral Stone Post-op Diagnosis Same Procedure Performed Cystoscopy, right ureteroscopy with laser lithotripsy and stone extraction, right ureteral stent placement Surgeon Nishant Rivera MD Anesthesia General Description of Procedure The patient was brought to the operative suite where he is prepped and draped in a routine sterile fashion while in the dorsal lithotomy position after the uneventful induction of a general LMA anesthetic. A 19F rigid cystoscope was placed in the bladder. There are no urethral strictures. His prostatic urethra measures, approximately, 3.0cm with large median lobe enlargement. The bladder mucosa was endoscopically normal without hyperemia or neoplasm. There was a single, orthotopic ureteral orifice bilaterally. A 0.035 glidewire was advanced into the right renal pelvis under fluoroscopy. The distal ureter was dilated with an 8F/10F ureteral dilator. Ureteroscopy was undertaken with a short tapered semi-rigid ureteroscope. During ureteroscopy I fractured the stone into smaller pieces using a 273 micron Holmium laser fiber with the Holmium laser. I was able to then extract the stone pieces using a 1.9F Escape disposable stone basket. Due to the extent of this manipulation I did place a 4.8F double-J ureteral stent. The proximal coil of the stent was confirmed to be in the renal pelvis and the distal coil in the bladder. The patient's bladder was emptied and he was taken to the recovery room having tolerated this procedure well. Drains Yes Packing No Pathology Yes Complications No immediate complications Condition Stable Disposition PACU
== END 2021-12-28 12:30 | disposition home or self-care (01) ==
PROVIDERS: PCP Internal Medicine; Visit Provider Urology
PROC: (CPT 52352; principal; 2021-12-28 10:00)
DX: N20.1 Calculus of ureter (principal); I10 Essential (primary) hypertension; E78.5 Hyperlipidemia, unspecified; Z94.0 Kidney transplant status; E66.9 Obesity, unspecified; Z68.31 Body mass index [BMI] 31.0-31.9, adult
CPT/HCPCS: 52356; 82365; 88300; A9270; C1769; C2617; J0171; J0690; J1100; J2405; J2704; J3010; J7120

== ENCOUNTER 2022-01-17 07:51 | Outpatient (CLI) | payer MEDICARE, SELFPAY ==
--- NOTE | ~2022-01-17 | CT_ITS ---
EXAMINATION: CT abdomen pelvis wo con DATE: 01/17/2022 08:20 INDICATION: Right-sided nephrolithiasis. TECHNIQUE: Computed tomography (CT) of the abdomen and pelvis was performed without intravenous contr ast. Automated exposure control and iterative reconstruction technique were employed. The dose-length product was 359.21 mGy-cm. COMPARISON: 12/12/2021 FINDINGS: Bilateral calcified pleural plaques in the mid and lower lung zones consistent with likely prior asbe stos exposure. Heart size is normal. Atherosclerotic coronary artery calcifications. No pericardial o r pleural effusion. Calcified right hilar lymph nodes along with small splenic calcification consiste nt with old granulomatous disease. A few subcentimeter low-attenuation cysts in the left hepatic lobe . Gallbladder, pancreas and bilateral adrenal glands are normal. Bilateral renal cysts the largest on the right measuring 4.8 cm. This includes a few smaller parapelvic cysts at the left kidney. 1 mm no nobstructing stone at the lower pole of the left kidney and 3 nonobstructing left-sided renal stones the largest measuring 5-6 mm in maximal diameter. No ureteral stones or hydronephrosis. Partially dec ompressed bladder is unremarkable. Mild prostatomegaly measuring 5.8 x 4.3 cm. Small fat-containing l eft inguinal hernia. A few scattered colonic diverticula without adjacent inflammatory change to sugg est diverticulitis. No bowel obstruction. The appendix is not visualized. No pericecal inflammatory c hange to suggest acute appendicitis. Mild thoracic and lumbar spondylosis and mild bilateral hip oste oarthritis. IMPRESSION: 1. Bilateral nonobstructing nephrolithiasis. No ureteral stones or hydronephrosis. 2. 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 2. Small fat-containing left inguinal hernia. Reviewed, dictated and finalized at location B. IMPRESSION: 1. Bilateral nonobstructing nephrolithiasis. No ureteral stones or hydronephros is. 2. 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 2. Small fat-containing left inguinal hernia.
== END 2022-01-17 07:52 | disposition home or self-care (01) ==
LOC: CHSIMG 07:55
PROVIDERS: PCP Internal Medicine; Visit Provider Urology
DX: N20.1 Calculus of ureter (principal)
CPT/HCPCS: 74176

== ENCOUNTER 2022-01-18 00:36 | Day surgery (SDC) | payer MEDICARE, SELFPAY ==
[2022-01-03 13:52] VITALS: BMI 32.1
[2022-01-18 06:19] VITALS: PULSE 65; RESP 18; TEMP 36.3; O2SAT 97
[2022-01-18] MEDS: LACTATED RINGERS 1,000 ML 150 ML IV CONT (06:29)
--- NOTE | 2022-01-18 07:24 | P.PNAN_ITS ---
Anes - Initial Pre Proc Eval Procedure: Operation Date: 01/18/22 07:30 Proposed Procedures p Colonoscopy - Norman Jaffe DO Date/Time: 01/18/22 07:24 Surgeon: Norman Jaffe DO Pre Op Diagnosis: hx of colon polyps Patient Data Age: 71 Gender: M Height: 1.7 m Weight: 90.3 kg Last Vital Signs Temp 97.4 F L 01/18/22 06:19 Pulse 65 01/18/22 06:19 Resp 18 01/18/22 06:19 Pulse Ox 97 01/18/22 06:19 O2 Del Method Room Air 01/18/22 06:19 Allergies Allergy/AdvReac Type Severity Reaction Status Date / Time IVP dye Allergy Intermediate Redness of Uncoded 01/18/22 06:18 Skin Home Medications Medication Instructions Recorded Confirmed Type escitalopram oxalate 10 mg tablet 10 mg PO DAILY 05/06/21 01/18/22 History (Lexapro) hydrocodone 5 mg-acetaminophen 325 1 tablet PO Q8H PRN pain #20 tabs 11/22/21 01/18/22 Rx mg tablet ascorbic acid (vitamin C) 500 mg 500 mg PO DAILY 12/20/21 01/18/22 History tablet multivitamin 1 tablet PO DAILY 12/20/21 01/18/22 History omega-3 fatty acids 1,000 mg PO DAILY 12/20/21 01/18/22 History rosuvastatin 10 mg tablet 10 mg PO QPM 12/20/21 01/18/22 History Patient hx anesthesia problems: none Family hx anesthesia problems: none Results Review: All pre-operative results and documents have been reviewed as part of the pre- operative evaluation. [facility] Past Medical History Medical History Depression HLD (hyperlipidemia) Ureteric stone of transplanted kidney Social History Social History Smoking status: Never smoker Additional smoking assessment comments: DENIES ANY FORM OF TOBACCO USE Alcohol intake: never Substance use: never Substance use type: does not use Living arrangements: with family Spiritual care concerns: No Anes - Eval Final PreProcedure Day of Procedure 01/18/22 07:24 Patient weight: obese Heart: regular rate and rhythm Lungs: clear to auscultation Airway: Mallampati scale class II Neurological: alert and oriented Last oral intake: >/= 8 hours ASA classification: II Emergent: no Anesthetic plan: proceed Anesthesia type and monitoring: general GIVS and standard monitoring Results Review: All pre-operative results and documents have been reviewed as part of the pre- operative evaluation. Informed Consent: The patient's anesthetic plan and its attendant risks and benefits were discussed with the patient/family/POA. Questions were solicited and answers provided to the satisfaction of the patient/family/POA.
--- NOTE | 2022-01-18 07:30 | PM.IMHP ---
H&P: HPI History of Present Illness Date/Time: 01/18/22 07:30 Chief Complaint: History of colon polyps Narrative: this 71-year-old man who presents for colonoscopy. His last colonoscopy was 5 years ago. Polyps removed at that time. He does have a family history of colon cancer in his mother. He denies any hematochezia or melena. Review of Systems Review of Systems: All systems reviewed & are unremarkable except as noted in HPI and below Constitutional: Constitutional: Denies chills, Denies fever(s), Denies headache(s) and Denies weight loss Eyes: Eyes: Denies change in vision ENT: Denies dizziness, Denies headache(s), Denies neck mass and Denies throat swelling Cardiovascular: Cardiovascular: Denies chest pain, Denies lightheadedness and Denies dyspnea Respiratory: Respiratory: Denies cough, Denies dyspnea and Denies wheezing Gastrointestinal: Gastrointestinal: Denies abdominal pain, Denies change in bowel habits, Denies nausea and Denies vomiting Genitourinary: Genitourinary: Denies hematuria and Denies dysuria Musculoskeletal: Musculoskeletal: Reports as per HPI Integumentary/Breasts: Skin/Breast: Reports as per HPI Neurologic: Denies dizziness and Denies headache(s) Allergic/Immunologic: Allergic/Immunologic: Denies throat swelling and Denies wheezing PMFSH Past Medical History Medical History Depression HLD (hyperlipidemia) Ureteric stone of transplanted kidney Social History Social History Smoking status: Never smoker Additional smoking assessment comments: DENIES ANY FORM OF TOBACCO USE Alcohol intake: never Substance use: never Substance use type: does not use Living arrangements: with family Spiritual care concerns: No Meds Home Medications and Allergies Home Medications Medication Instructions Recorded Confirmed Type escitalopram oxalate 10 mg tablet 10 mg PO DAILY 05/06/21 01/18/22 History (Lexapro) hydrocodone 5 mg-acetaminophen 325 1 tablet PO Q8H PRN pain #20 tabs 11/22/21 01/18/22 Rx mg tablet ascorbic acid (vitamin C) 500 mg 500 mg PO DAILY 12/20/21 01/18/22 History tablet multivitamin 1 tablet PO DAILY 12/20/21 01/18/22 History omega-3 fatty acids 1,000 mg PO DAILY 12/20/21 01/18/22 History rosuvastatin 10 mg tablet 10 mg PO QPM 12/20/21 01/18/22 History Allergies Allergy/AdvReac Type Severity Reaction Status Date / Time IVP dye Allergy Intermediate Redness of Uncoded 01/18/22 06:18 Skin Vital Signs Vital Signs - 24 hr 01/18/22 06:19 Temperature 36.3 C L Pulse Rate 65 Respiratory Rate 18 Pulse Oximetry 97 Oxygen Delivery Room Air Exam Const: General: no acute distress and alert Orientation/consciousness: patient oriented x3 HENMT: Head: normocephalic and atraumatic Ears: hearing grossly normal bilaterally General nose exam: Normal nares present Mouth: Yes Normal oral and palatal mucosa present Eyes: Periorbital: periorbital findings normal Sclera: sclerae normal EOM: EOMs intact bilaterally Neck: Neck: normal visual inspection, no lymphadenopathy and trachea midline Chest: Chest palpation & inspection: normal inspection of the chest Resp: Effort & Inspection: normal respiratory effort Auscultation: clear to auscultation bilaterally Cardio: Jugular venous distension: no JVD Rate: regular rate Rhythm: regular rhythm Heart sounds: S1 normal heart sound present and S2 normal heart sound present Peripheral pulses: Peripheral pulses 2+ throughout GI: Inspection: normal to inspection GI Palp: Yes Soft to palpation, No Tenderness to palpation present (GI), No Guarding due to palpation present (GI) and No Rebound tenderness present Percussion: Yes normal to percussion Auscultation: normal bowel sounds : General: Yes no CVA tenderness Back/Spine/Pelvis: Back: no CVA tenderness Neuro: General: pa
[2022-01-18 07:54] VITALS: BP 110/59; PULSE 62; RESP 17; O2SAT 96
[2022-01-18 08:04] VITALS: BP 121/79; PULSE 60; RESP 20; O2SAT 98
[2022-01-18 08:14] VITALS: BP 136/89; PULSE 61; RESP 18; O2SAT 98
== END 2022-01-18 08:18 | disposition home or self-care (01) ==
PROVIDERS: PCP Internal Medicine; Visit Provider Surgery
PROC: 0DJD8ZZ Inspection of Lower Intestinal Tract, Via Natural or Artificial Opening Endoscopic (ICD-10-PCS; CPT 45378; principal; 2022-01-18 07:30)
DX: Z12.11 Encounter for screening for malignant neoplasm of colon (principal); D12.3 Benign neoplasm of transverse colon; K57.30 Diverticulosis of large intestine without perforation or abscess without bleeding; E78.5 Hyperlipidemia, unspecified; F32.9 Major depressive disorder, single episode, unspecified; Z94.0 Kidney transplant status; E66.9 Obesity, unspecified; Z68.31 Body mass index [BMI] 31.0-31.9, adult
CPT/HCPCS: 45385; 88305; J2704; J7120

== ENCOUNTER 2022-02-09 10:16 | Outpatient (CLI) | payer MEDICARE, SELFPAY ==
--- NOTE | ~2022-02-09 | US_ITS ---
EXAMINATION: US retroperitoneal comp DATE: 02/09/2022 11:49 INDICATION: Right ureteral stone post lithotripsy TECHNIQUE: Multiple ultrasound grayscale images of the kidneys were obtained. COMPARISON: CT dated 01/17/2022 and ultrasound dated 11/16/2021 FINDINGS: The right kidney measures 12.6 x 5.2 x 5.9 cm. The left kidney measures 12.2 x 5.9 x 5.5 cm. The kidn eys demonstrate normal echogenicity. There are bilateral simple appearing anechoic renal cysts, the l argest at the upper pole of the right kidney measuring 5.6 cm and 2.0 cm at the upper pole of the lef t kidney. Mild right hydronephrosis which does not significantly change post void. Small loculated fl uid collections at the left renal hilum which based upon prior imaging appears more likely to represe nt parapelvic cysts than left hydronephrosis. Small focus of what appears to be technical artifact at the lower pole of the right kidney which appears to correspond to the location of a 1 mm renal stone on the most recent prior CT. No shadowing stones identified in either kidney. The bladder appears no rmal with calculated prevoid bladder volume of 463 mm and postvoid residual bladder volume of 54 mL. Bilateral ureteral jets are visualized in the bladder on color Doppler, more prominent on the left. M ore prominent focus of twinkle artifact extending posteriorly from the region of the left ureterovesi cular junction which could potentially also represent the previous noted right renal stone. Of note a single 1 mm right renal stone is seen at the lower pole of the right kidney on prior CT. Prostatomeg maday. IMPRESSION: 1. Persistent mild right hydronephrosis with foci of twinkle artifact centered at the region of the right ureterovesicular junction and at the lower pole of the right kidney, either of which could repr esent the 1 mm right renal stone seen at the lower pole of the right kidney on the most recent CT isa ed 01/18/22. Reviewed, dictated and finalized at location B. IMPRESSION: 1. Persistent mild right hydronephrosis with foci of twinkle artifact centered at the region of the right ureterovesicular junction and at the lower pole of the right kidney, either of which could represent the 1 mm right renal stone se en at the lower pole of the right kidney on the most recent CT dated 01/18/22.
== END 2022-02-09 10:17 | disposition home or self-care (01) ==
LOC: CHSIMG 10:17
PROVIDERS: PCP Internal Medicine; Visit Provider Urology
DX: N20.1 Calculus of ureter (principal)
CPT/HCPCS: 76770

== ENCOUNTER 2022-04-20 07:04 | Outpatient (CLI) | payer MEDICARE, SELFPAY ==
[2022-04-20 07:49] LABS: Basophils Absolute Auto 0.02 K/mm3 (0.00-0.10); Basophils Percent Auto 0.5 % (0.0-1.0); Eosinophils Absolute Auto 0.22 K/mm3 (0.02-0.50); Hematocrit 44.1 % (37.0-46.0); Hemoglobin 15.2 g/dL (12.4-15.3); Immature Granulocyte Absolute 0.01 K/mm3 (0.00-0.00); Immature Granulocyte Percent A 0.2 % (0.0-0.0); Lymphocytes Absolute Auto 0.88 K/mm3 (1.10-4.50); Mean Corpuscular HGB Conc 34.5 g/dL (32.0-36.0); Mean Corpuscular Hemoglobin 33.9 pg (27.0-31.0); Mean Corpuscular Volume 98.2 fL (78.0-102.0); Mean Platelet Volume 10.6 fl (8.7-11.0); Monocytes Absolute Auto 0.45 K/mm3 (0.10-0.90); Monocytes Percent Auto 10.2 % (2.0-11.0); Neutrophils Absolute Auto 2.8 K/mm3 (1.7-7.2); Neutrophils Percent Auto 64.1 % (50.0-70.0); Platelet Count Result 180 K/mm3 (150-420); Red Blood Count 4.49 M/mm3 (4.70-6.10); Red Cell Distribution Width 12.2 % (11.6-14.4); White Blood Count 4.4 K/mm3 (4.8-10.8)
[2022-04-20 07:55] LABS: Add Urine Microscopic? NO; Appearance Urine Clear (Clear); Bilirubin Urine Negative (Negative); Blood Urine Negative (Negative); Color Urine Light Yellow (Yellow); Glucose Urine UA Negative (Negative); Ketones Urine Negative (Negative); Leukocyte Esterase Ur Negative (Negative); Nitrate Urine Negative (Negative); Protein Urine Negative (Negative); Urobilinogen Urine 0.2 mg/dL (0.2-1.0); pH Urine 5.5 (5.0-8.0)
[2022-04-20 07:57] LABS: Hemoglobin A1C 5.6 % (<5.7)
[2022-04-20 08:16] LABS: Alanine Aminotransferase 31 U/L (16-63); Albumin Level 3.8 g/dL (3.4-5.0); Alkaline Phosphatase 61 U/L (46-116); Anion Gap 9 mmol/L (8-16); Aspartate Amino Transferase 17 U/L (15-37); Bilirubin,Total 0.4 mg/dL (0.00-1.00); Blood Urea Nitrogen 16 mg/dL (7-18); Calcium 9.2 mg/dL (8.5-10.1); Carbon Dioxide 27 mmol/L (21-32); Chloride 103 mmol/L (98-108); Cholesterol 158 mg/dL (0-200); Creatine Kinase 43 U/L (39-308); Estimated Glomerular Filt Rate > 60; Glucose 129 mg/dL (70-99); HDL Direct 50 mg/dL (40-60); LDL Cholesterol Calculated 86 mg/dL (<130); Osmolality Calculated 291 mOsm/kg (285-295); Potassium 3.7 mmol/L (3.5-5.1); Sodium 139 mmol/L (136-145); Total Protein 7.2 g/dL (6.4-8.2); Triglycerides 108 mg/dL (0-150)
[2022-04-20 08:19] LABS: Prostate Specific Antigen < 0.1 ng/mL (< OR = 4.0)
== END 2022-04-20 07:05 | disposition home or self-care (01) ==
LOC: CHSLAB 07:06
PROVIDERS: PCP Internal Medicine; Visit Provider Internal Medicine
DX: E78.2 Mixed hyperlipidemia (principal); I10 Essential (primary) hypertension; R73.01 Impaired fasting glucose; N20.1 Calculus of ureter; R97.20 Elevated prostate specific antigen [PSA]
CPT/HCPCS: 36415; 80053; 80061; 81003; 82550; 83036; 84153; 85025; 87086; 87088

== ENCOUNTER 2022-08-06 14:12 | Emergency (ER) | payer MEDICARE, SELFPAY ==
[2022-08-06 14:25] VITALS: BP 172/82; PULSE 62; RESP 18; TEMP 36.2; O2SAT 98
--- NOTE | 2022-08-06 14:43 | ED.MALEGU ---
HPI - Male Genitourinary General Chief complaint: Skin/Abscess/Foreign Body Stated complaint: Genital infection Time Seen by Provider: 08/06/22 14:43 Source: patient and RN notes reviewed Mode of arrival: ambulatory Limitations: no limitations History of Present Illness HPI Narrative: patient states he is having some swelling and some redness and tenderness on glans penis on the left side. Has been going on for 3 days. He does not recall any injury. He is circumcised. Onset (ago): day(s) (2) Duration: constant Location: penis Severity: moderate Quality: aching, burning and dull Relieving factors: none Exacerbating factors: palpation Associated symptoms: Reports denies other symptoms Related Data Home Medications Medication Instructions Recorded Confirmed escitalopram oxalate 10 mg tablet 10 mg PO DAILY 05/06/21 08/06/22 (Lexapro) ascorbic acid (vitamin C) 500 mg 500 mg PO DAILY 12/20/21 08/06/22 tablet multivitamin 1 tablet PO DAILY 12/20/21 08/06/22 omega-3 fatty acids 1,000 mg PO DAILY 12/20/21 08/06/22 rosuvastatin 10 mg tablet 10 mg PO QPM 12/20/21 08/06/22 Allergies Allergy/AdvReac Type Severity Reaction Status Date / Time IVP dye Allergy Intermediate Redness of Uncoded 01/18/22 06:18 Skin Review of Systems Review of Systems: All systems reviewed & are unremarkable except as noted in HPI and below PMFSH Past Medical History Medical History Depression HLD (hyperlipidemia) Ureteric stone of transplanted kidney Social History Social History Smoking status: Never smoker Additional smoking assessment comments: DENIES ANY FORM OF TOBACCO USE Alcohol intake: never Substance use: never Substance use type: does not use Spiritual care concerns: No Exam Const: General: healthy appearing, no acute distress and alert Nutritional Appearance: well nourished and obese centrally obese Limitations: no limitations HENMT: Head: normal to inspection Ears: TM's normal bilaterally Eyes: Conjunctivae: conjunctivae normal Pupils: Equal, round and reactive pupils present EOM: EOMs intact bilaterally Neck: Neck: normal visual inspection Resp: Effort & Inspection: normal respiratory effort Auscultation: clear to auscultation bilaterally Cardio: Rate: regular rate Rhythm: regular rhythm GI: GI Palp: Yes Soft to palpation and No Tenderness to palpation present (GI) Auscultation: normal bowel sounds : Male General Exam: Yes tenderness ( glans penis left side) Penis: Yes circumcised, Yes edematous ( along the left side of the glans penis) and Yes erythematous ( left-side glans penis) Back/Spine/Pelvis: Cervical Spine: cervical ROM normal Thoracic/Lumbar Spine: thoraco-lumbar ROM normal Skin: General skin exam: normal color Rashes: no rashes Neuro: General: patient oriented x3, moves all extremities and no focal motor deficits Cranial nerves: Yes CN's II-XII intact bilaterally Speech: normal speech Gait exam (Neuro): Normal gait present Extrem: General: normal to inspection and no clubbing, cyanosis or edema Psych: Mental Status: mental status grossly normal Affect: normal affect Attitude: cooperative Course Vital Signs Vital signs: Vital Signs Temperature 36.2 C L 08/06/22 14:25 Pulse Rate 62 08/06/22 14:25 Respiratory Rate 18 08/06/22 14:25 Blood Pressure 172/82 H 08/06/22 14:25 Pulse Oximetry 98 08/06/22 14:25 Oxygen Delivery Room Air 08/06/22 14:25 Temperature 36.2 C L 08/06/22 14:25 Pulse Rate 62 08/06/22 14:25 Respiratory Rate 18 08/06/22 14:25 Blood Pressure 172/82 H 08/06/22 14:25 Pulse Oximetry 98 08/06/22 14:25 Oxygen Delivery Room Air 08/06/22 14:25 MDM - Male Genitourinary MDM Narrative Medical decision making narrative: Balanitis fungal versus bacterial. I will start him on single dose Diflucan. There w
[2022-08-06 15:14] VITALS: BP 133/66; PULSE 66; RESP 18; O2SAT 95
== END 2022-08-06 15:19 | disposition home or self-care (01) ==
PROVIDERS: Emergency Provider Emergency Medicine; PCP Internal Medicine
DX: N48.1 Balanitis (principal); F32.9 Major depressive disorder, single episode, unspecified; E78.5 Hyperlipidemia, unspecified
CPT/HCPCS: 99283

== ENCOUNTER 2022-08-13 08:02 | Outpatient (CLI) | payer MEDICARE, SELFPAY ==
[2022-08-13 08:23] LABS: Hemoglobin A1C 5.4 % (<5.7)
[2022-08-13 08:47] LABS: Anion Gap 4 mmol/L (8-16); Blood Urea Nitrogen 14 mg/dL (7-18); Calcium 9.1 mg/dL (8.5-10.1); Carbon Dioxide 34 mmol/L (21-32); Chloride 106 mmol/L (98-108); Estimated Glomerular Filt Rate > 60; Glucose 114 mg/dL (70-99); Osmolality Calculated 299 mOsm/kg (285-295); Potassium 5.1 mmol/L (3.5-5.1); Sodium 144 mmol/L (136-145)
== END 2022-08-13 08:03 | disposition home or self-care (01) ==
LOC: CHSLAB 08:04
PROVIDERS: PCP Internal Medicine; Visit Provider Internal Medicine
DX: E11.9 Type 2 diabetes mellitus without complications (principal)
CPT/HCPCS: 36415; 80048; 83036

== ENCOUNTER 2022-09-10 10:46 | Outpatient (CLI) | payer MEDICARE, SELFPAY ==
--- NOTE | ~2022-09-10 | XR_ITS ---
Supine and upright views of the abdomen Clinical history: Right ureteral stone Findings: Bowel gas pattern is nonspecific. No evidence for obstruction or free air. Left renal stone is present, measuring 5 mm at the upper pole. Probable additional tiny bilateral renal stones. [place] us structures are intact. Impression: Nephrolithiasis, as detailed above. Reviewed, dictated and finalized at location . [employer] Impression: Nephrolithiasis, as detailed above.
== END 2022-09-10 10:47 | disposition home or self-care (01) ==
LOC: CHSIMG 10:49
PROVIDERS: PCP Internal Medicine; Visit Provider Urology
DX: N20.1 Calculus of ureter (principal); N20.0 Calculus of kidney
CPT/HCPCS: 74018

== ENCOUNTER 2022-10-22 11:14 | Outpatient (CLI) | payer MEDICARE, SELFPAY ==
--- NOTE | ~2022-10-22 | XR_ITS ---
EXAMINATION: XR chest 2V DATE: 10/22/2022 11:37 INDICATION: Fever, sore throat and 3 days of cough TECHNIQUE: PA and lateral views of the chest were obtained. COMPARISON: Chest radiograph dated 05/06/[address] abdomen and pelvis dated 01/17/2022 FINDINGS: Again seen are small calcified pleural plaques at the lateral aspect of the bilateral lower lung zone s. No other Airspace opacities, pulmonary edema, pleural effusion or pneumothorax. The cardiomediasti nal silhouette is normal. Mild thoracic spondylosis. IMPRESSION: 1. No acute cardiopulmonary disease. 2. 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 Reviewed, dictated and finalized at location A. NCE WEIGHER IMPRESSION: 1. No acute cardiopulmonary disease. 2. Chronic bilateral calcified pleural plaques consistent with prior asbestos e xposure.
[2022-10-22 11:27] LABS: Basophils Absolute Auto 0.01 K/mm3 (0.00-0.10); Basophils Percent Auto 0.1 % (0.0-1.0); Hematocrit 43.8 % (37.0-46.0); Hemoglobin 15.1 g/dL (12.4-15.3); Immature Granulocyte Absolute 0.04 K/mm3 (0.00-0.00); Immature Granulocyte Percent A 0.4 % (0.0-0.0); Lymphocytes Absolute Auto 0.61 K/mm3 (1.10-4.50); Lymphocytes Percent Auto 5.9 % (18.0-42.0); Mean Corpuscular HGB Conc 34.5 g/dL (32.0-36.0); Mean Corpuscular Hemoglobin 34.4 pg (27.0-31.0); Mean Corpuscular Volume 99.8 fL (78.0-102.0); Mean Platelet Volume 10.1 fl (8.7-11.0); Monocytes Absolute Auto 1.25 K/mm3 (0.10-0.90); Neutrophils Absolute Auto 8.5 K/mm3 (1.7-7.2); Neutrophils Percent Auto 81.6 % (50.0-70.0); Platelet Count Result 119 K/mm3 (150-420); Red Blood Count 4.39 M/mm3 (4.70-6.10); Red Cell Distribution Width 12.7 % (11.6-14.4); White Blood Count 10.4 K/mm3 (4.8-10.8)
[2022-10-22 11:42] LABS: Alanine Aminotransferase 23 U/L (16-63); Albumin Level 3.7 g/dL (3.4-5.0); Alkaline Phosphatase 55 U/L (46-116); Anion Gap 8 mmol/L (8-16); Aspartate Amino Transferase 20 U/L (15-37); Bilirubin,Total 0.5 mg/dL (0.00-1.00); Blood Urea Nitrogen 18 mg/dL (7-18); Calcium 8.3 mg/dL (8.5-10.1); Carbon Dioxide 28 mmol/L (21-32); Chloride 104 mmol/L (98-108); Estimated Glomerular Filt Rate 59; Glucose 136 mg/dL (70-99); Osmolality Calculated 293 mOsm/kg (285-295); Potassium 3.9 mmol/L (3.5-5.1); Sodium 140 mmol/L (136-145); Total Protein 7.4 g/dL (6.4-8.2)
== END 2022-10-22 11:15 | disposition home or self-care (01) ==
PROVIDERS: PCP Internal Medicine; Visit Provider Internal Medicine
DX: R50.9 Fever, unspecified (principal); J02.9 Acute pharyngitis, unspecified; R91.8 Other nonspecific abnormal finding of lung field
CPT/HCPCS: 36415; 71046; 80053; 85025

== ENCOUNTER 2022-12-13 07:29 | Outpatient (CLI) | payer MEDICARE, SELFPAY ==
--- NOTE | ~2022-12-13 | CT_ITS ---
Clinical Indication: Asbestosis CT Scan of the Chest with Contrast: Technique: Contiguous sections were acquired throughout the chest after intravenous administration of 75 cc of Omnipaque 350. Dose reduction technique was used on this scan by utilizing automated exposu re control and iterative reconstruction technique. The dose-length product (DLP) was 399.46 mGy-cm. Findings: Single mildly prominent anterior mediastinal lymph node measures 10 mm in short axis (axial image 50) .. There is no filling defect in the pulmonary arterial tree to suggest pulmonary embolus. There is n o evidence of aortic dissection or aneurysm. There is no evidence of pleural or pericardial effusion. Scattered small calcified pleural plaques ar e present. The lungs are otherwise clear. No pulmonary nodules or infiltrates are noted. Images through the upper abdomen reveal small left hepatic lobe cysts and right renal cysts. Impression: Scattered calcified pleural plaques, consistent with asbestos related pleural disease. Single borderline prominent anterior mediastinal lymph node, as noted above, nonspecific. Reviewed, dictated and finalized at [facility]. Impression: Scattered calcified pleural plaques, consistent with asbestos related pleural d isease. Single borderline prominent anterior mediastinal lymph node, as noted above, no nspecific.
[2022-12-13 07:56] LABS: Estimated Glomerular Filt Rate > 60
== END 2022-12-13 07:30 | disposition home or self-care (01) ==
LOC: CHSIMG 07:32
PROVIDERS: PCP Internal Medicine; Visit Provider Internal Medicine
DX: J61 Pneumoconiosis due to asbestos and other mineral fibers (principal); R91.8 Other nonspecific abnormal finding of lung field
CPT/HCPCS: 71260; Q9967

== ENCOUNTER 2023-03-18 07:58 | Outpatient (CLI) | payer MEDICARE, SELFPAY ==
--- NOTE | ~2023-03-18 | CT_ITS ---
Clinical Indication: Asbestos exposure, lymphadenopathy CT Scan of the Chest with Contrast: Technique: Contiguous sections were acquired throughout the chest after intravenous administration of 75 cc of Omnipaque 350. Dose reduction technique was used on this scan by utilizing automated exposu re control and iterative reconstruction technique. The dose-length product (DLP) was 361.46 mGy-cm. COMPARISON: 12/13/2022 Findings: Stable single mildly prominent anterior mediastinal lymph node. There is no filling defect in the pul monary arterial tree to suggest pulmonary embolus. There is no evidence of aortic dissection or aneur ysm. There is no evidence of pleural or pericardial effusion. Calcified pleural plaques are present bilate rally. The lungs are clear. No pulmonary nodules or infiltrates are noted. Images through the upper abdomen reveal 8 mm nonobstructing left renal stone. Multiple bilateral robert l cysts are present. Impression: Calcified pleural plaques are consistent with asbestos related pleural disease, essentially unchanged . Stable single borderline prominent anterior mediastinal lymph node, nonspecific. Reviewed, dictated and finalized at [facility]. Impression: Calcified pleural plaques are consistent with asbestos related pleural disease, essentially unchanged. Stable single borderline prominent anterior mediastinal lymph node, nonspecific .
[2023-03-18 08:39] LABS: Estimated Glomerular Filt Rate > 60
== END 2023-03-18 07:59 | disposition home or self-care (01) ==
LOC: CHSIMG 07:59
PROVIDERS: PCP Internal Medicine; Visit Provider Internal Medicine
DX: J61 Pneumoconiosis due to asbestos and other mineral fibers (principal); R91.8 Other nonspecific abnormal finding of lung field
CPT/HCPCS: 71260; Q9967

== ENCOUNTER 2023-12-15 20:15 | Emergency (ER) | payer MEDICARE, SELFPAY ==
[2023-12-15 20:17] VITALS: BP 135/71; PULSE 85; RESP 18; TEMP 37; O2SAT 96
[2023-12-15 20:27] LABS: Appearance Urine Clear (Clear); Bilirubin Urine Negative (Negative); Blood Urine Negative (Negative); Color Urine Yellow (Yellow); Glucose Urine UA Negative (Negative); Ketones Urine Negative (Negative); Leukocyte Esterase Ur Negative LEU/UL (Negative); Nitrate Urine Negative (Negative); Protein Urine Negative (Negative); Specific Grav Ur 1.025 (1.010-1.020); Urobilinogen Urine 0.2 mg/dL (0.2-1.0)
[2023-12-15 20:29] LABS: Add Urine Microscopic? NO
--- NOTE | 2023-12-15 20:42 | ED.MALEGU ---
HPI - Male Genitourinary General Chief complaint: Urogenital-Male Stated complaint: urogenital Time Seen by Provider: 12/15/23 20:42 Source: patient Mode of arrival: ambulatory Limitations: no limitations History of Present Illness HPI Narrative: Patient is a 73-year-old male with dysuria and pain on the tip of the penis for the past 3 days. He has a history of BPH. MD Complaint: dysuria Onset (ago): day(s) (3) Duration: constant Location: penis Radiation: penis Severity: mild Severity scale (1-10): 3 Quality: sharp Relieving factors: none Exacerbating factors: none Associated symptoms: Reports denies other symptoms Related Data Home Medications Medication Instructions Recorded Confirmed ascorbic acid (vitamin C) 500 mg 500 mg PO DAILY 12/20/21 12/15/23 tablet multivitamin 1 tablet PO DAILY 12/20/21 12/15/23 omega-3 fatty acids 1,000 mg PO DAILY 12/20/21 12/15/23 rosuvastatin 10 mg tablet 10 mg PO QPM 12/20/21 12/15/23 escitalopram oxalate 20 mg tablet 20 mg PO DAILY 12/15/23 12/15/23 losartan 25 mg tablet 25 mg PO DAILY 12/15/23 12/15/23 Allergies Allergy/AdvReac Type Severity Reaction Status Date / Time IVP dye Allergy Intermediate Redness of Uncoded 01/18/22 06:18 Skin Review of Systems Review of Systems: All systems reviewed & are unremarkable except as noted in HPI and below Constitutional: Constitutional: Reports no additional constitutional complaints Eyes: Eyes: Reports no additional eye complaints ENT: Reports system reviewed and no additional complaints, except as documented Cardiovascular: Cardiovascular: Reports no additional cardiovascular complaints Respiratory: Respiratory: Reports no additional respiratory complaints Gastrointestinal: Gastrointestinal: Reports no additional gastrointestinal complaints Genitourinary: Genitourinary: Reports no additional male genitourinary complaints Musculoskeletal: Musculoskeletal: Reports no additional musculoskeletal complaints Integumentary/Breasts: Skin/Breast: Reports system reviewed and no additional complaints, except as docu Neurologic: Reports system reviewed and no additional complaints, except as documented Psychiatric: Psychiatric: Reports no additional psychiatric complaints Endocrine: Endocrine: Reports no additional endocrine complaints Hematologic/Lymphatic: Hematologic/Lymphatic: Reports no additional hematologic/lymphatic complaints Allergic/Immunologic: Allergic/Immunologic: Reports no additional allergic/immunologic complaints PMFSH Past Medical History Medical History Depression HLD (hyperlipidemia) Ureteric stone of transplanted kidney Social History Social History Smoking status: Never smoker Additional smoking assessment comments: DENIES ANY FORM OF TOBACCO USE Alcohol intake: never Substance use: never Substance use type: does not use Living arrangements: with family Spiritual care concerns: No Exam Const: General: cooperative, healthy appearing and comfortable HENMT: Head: normal to inspection, No palpable skull fracture present and normocephalic Face and sinus: normal facial exam Mouth: Yes Normal oral and palatal mucosa present Teeth and gingiva: dentition normal Eyes: General: appearance normal, both eyes and all related structures Neck: Neck: normal visual inspection, full ROM and no lymphadenopathy Chest: Chest palpation & inspection: normal inspection of the chest Resp: Effort & Inspection: normal respiratory effort and able to speak in complete sentences Auscultation: clear to auscultation bilaterally, bronchial breath sounds and no bronchovesicular breath sounds Cardio: Jugular venous distension: no JVD Palpation: normal PMI Rate: regular rate Rhythm: regular rhythm GI: Inspection: normal to inspection GI Palp: Yes Soft to palpation, No Firmness to palpation
[2023-12-15] MEDS: CIPROFLOXACIN 500 MG TAB PO (21:03)
[2023-12-15] MEDS: TAMSULOSIN HCL 0.4 MG CAPSULE PO (21:03)
[2023-12-15 21:25] VITALS: BP 136/62; PULSE 74; RESP 18; TEMP 36.6; O2SAT 96
== END 2023-12-15 21:25 | disposition home or self-care (01) ==
PROVIDERS: Emergency Provider Emergency Medicine; PCP Internal Medicine
DX: N41.0 Acute prostatitis (principal); E78.5 Hyperlipidemia, unspecified
CPT/HCPCS: 81003; 99283; A9270

== ENCOUNTER 2023-12-30 06:59 | Outpatient (CLI) | payer MEDICARE, SELFPAY ==
[2023-12-30 07:28] LABS: Basophils Absolute Auto 0.04 K/mm3 (0.00-0.10); Basophils Percent Auto 0.8 % (0.0-1.0); Eosinophils Absolute Auto 0.32 K/mm3 (0.02-0.50); Eosinophils Percent Auto 6.1 % (1.0-6.0); Hematocrit 45.6 % (37.0-46.0); Hemoglobin 15.6 g/dL (12.4-15.3); Immature Granulocyte Absolute 0.01 K/mm3 (0.00-0.00); Immature Granulocyte Percent A 0.2 % (0.0-0.0); Lymphocytes Absolute Auto 1.09 K/mm3 (1.10-4.50); Lymphocytes Percent Auto 20.7 % (18.0-42.0); Mean Corpuscular HGB Conc 34.2 g/dL (32-36); Mean Corpuscular Hemoglobin 33.7 pg (27.0-31.0); Mean Corpuscular Volume 98.5 fL (78.0-102.0); Mean Platelet Volume 9.5 fl (8.7-11.0); Monocytes Percent Auto 11.4 % (2.0-11.0); Neutrophils Percent Auto 60.8 % (50.0-70.0); Platelet Count Result 166 K/mm3 (150-420); Red Blood Count 4.63 M/mm3 (4.70-6.10); Red Cell Distribution Width 12.4 % (11.6-14.4); White Blood Count 5.3 K/mm3 (4.8-10.8)
[2023-12-30 07:29] LABS: Appearance Urine Clear (Clear); Bilirubin Urine Negative (Negative); Blood Urine Negative (Negative); Color Urine Yellow (Yellow); Glucose Urine UA Negative (Negative); Ketones Urine Negative (Negative); Leukocyte Esterase Ur Negative (Negative); Nitrate Urine Negative (Negative); Protein Urine Negative (Negative); Specific Grav Ur >= 1.030 (1.010-1.020); Urobilinogen Urine 0.2 mg/dL (0.2-1.0)
[2023-12-30 07:37] LABS: Hemoglobin A1C 5.4 % (<5.7)
[2023-12-30 07:42] LABS: Add Urine Microscopic? NO
[2023-12-30 08:33] LABS: Alanine Aminotransferase 38 U/L (16-63); Albumin Level 3.9 g/dL (3.4-5.0); Alkaline Phosphatase 52 U/L (46-116); Anion Gap 7 mmol/L (4-12); Aspartate Amino Transferase 22 U/L (15-37); Bilirubin,Total 0.9 mg/dL (0.00-1.00); Blood Urea Nitrogen 13 mg/dL (7-18); Calcium 8.4 mg/dL (8.5-10.1); Carbon Dioxide 31 mmol/L (21-32); Chloride 104 mmol/L (98-108); Cholesterol 142 mg/dL (0-200); Creatine Kinase 78 U/L (39-308); Estimated Glomerular Filt Rate > 60; Glucose 97 mg/dL (70-99); Osmolality Calculated 294 mOsm/kg (285-295); Potassium 4.4 mmol/L (3.5-5.1); Prostate Specific Antigen 5.2 ng/mL (< OR = 4.0); Sodium 142 mmol/L (136-145); Total Protein 6.9 g/dL (6.4-8.2); Triglycerides 131 mg/dL (0-150)
[2023-12-30 09:08] LABS: HDL Direct 39 mg/dL (40-60); LDL Cholesterol Calculated 77 mg/dL (<130)
== END 2023-12-30 07:00 | disposition home or self-care (01) ==
LOC: CHSLAB 07:01
PROVIDERS: PCP Internal Medicine; Visit Provider Internal Medicine
DX: R73.01 Impaired fasting glucose (principal); I10 Essential (primary) hypertension; E78.2 Mixed hyperlipidemia; R97.20 Elevated prostate specific antigen [PSA]
CPT/HCPCS: 36415; 80053; 80061; 81003; 82550; 83036; 84153; 85025

== ENCOUNTER 2024-01-24 13:40 | Outpatient (CLI) | payer MEDICARE, SELFPAY ==
--- NOTE | 2024-02-25 08:01 | WPDHOLTEREM ---
Holter/Event Monitor Holter/Event Monitor Date of procedure: 01/24/24 Holter/Event Procedure: Event Monitor Indications: Second degree AV block Conclusion: 1. 28 days event monitor between 01/24/24-02/22/24. There are 10 available transmissions for analysis. 2. Underlying rhythm is sinus rhythm. HR range 38-97 bpm; average HR 57 bpm. HR at 38 bpm was on 02/01/24 at 21:53. 3. There are intermittent premature supraventricular complexes with total burden of 7%. No supraventricular tachycardia. 4. There are occasional premature ventricular complexes with total burden of <1%. No ventricular tachycardia. 5. There is underlying first degree AV block. No significant pauses greater than 2 seconds. 6. Patient reports 2 episodes of symptoms of lightheadedness and symptom other than listed which demonstrate sinus rhythm, HR range 67-80 bpm.
== END 2024-01-24 13:41 | disposition home or self-care (01) ==
PROVIDERS: PCP Internal Medicine; Visit Provider Internal Medicine
DX: I44.1 Atrioventricular block, second degree (principal)
CPT/HCPCS: 93270

== ENCOUNTER 2024-02-13 14:25 | Outpatient (CLI) | payer MEDICARE, SELFPAY ==
--- NOTE | 2024-02-13 14:31 | ECHO_ITS ---
Patient Info Name: Tino García Age: 73 years : 1950 Gender: Male Ht: 67 in Wt: 205 lbs BSA: 2.13 m2 HR: 53 bpm BP: 148 / 72 mmHg Technical Quality: Good Exam Date: 02/13/2024 2:47 PM Exam Location: Echo Lab Patient Status: Outpatient Admit Date: 02/13/2024 Staff Ordering Physician: Kimmie Reich MD Rn Dialysis: [facility] Attending Provider: Kimmie Reich MD Referring Physician: Damir TORRES; Exam Type: CA echo doppler color flow Study Info Indications - 2nd degree heart block type 1 Complete two-dimensional, color flow and Doppler transthoracic echocardiogram is performed. Summary 1. Complete two-dimensional, color flow and Doppler transthoracic echocardiogram is performed. 2. Left ventricular chamber dimension is normal. 3. Left ventricular systolic function is normal, estimated at 55-60%. 4. There is mild concentric increased left ventricular wall thickness. 5. The left ventricular diastolic function is normal. 6. E/e' 9 is minimally elevated. 7. Left atrial chamber dimension is mildly enlarged. 8. There is mild aortic valve regurgitation. 9. There is mild tricuspid valve regurgitation. 10. No pulmonary hypertension, estimated pulmonary arterial systolic pressure is 19 mmHg. Left Ventricle E/e' 9 is minimally elevated. Left ventricular chamber dimension is normal. Left ventricular systolic function is normal, estimated at 55-60%. There is mild concentric increased left ventricular wall thickness. The left ventricular diastolic function is normal. Right Ventricle Right ventricular systolic function is normal and with normal TAPSE 2.2 cm. Right ventricular chamber dimension is normal. Left Atria Left atrial chamber dimension is mildly enlarged. Right Atria Right atrial chamber dimension is normal. Aortic Valve The aortic valve is trileaflet. There is no aortic valve stenosis. There is mild aortic valve regurgitation. Pulmonic Valve There is no pulmonic regurgitation. Mitral Valve There is no mitral valve stenosis. There is no mitral valve regurgitation. Tricuspid Valve There is mild tricuspid valve regurgitation. No pulmonary hypertension, estimated pulmonary arterial systolic pressure is 19 mmHg. Pericardium/Pleural There is no pericardial effusion. Inferior Vena Cava Normal inferior vena cava with >50% collapse upon inspiration consistent with normal right atrial pressure, 5 mmHg. Aorta The aortic root size at the sinus of Valsalva is normal. Left Ventricular Outflow Tract Name Value Normal LVOT 2D LVOT Diameter 2.1 cm LVOT Doppler LVOT Peak Velocity 122 cm/s LVOT Peak Gradient 6 mmHg LVOT Mean Gradient 3 mmHg LVOT VTI 28 cm LVOT VTI/AV VTI Ratio 0.9 LVOT Stroke Volume 100 ml Pulmonic Valve Name Value Normal PV Doppler PV Peak Velocity
== END 2024-02-13 14:26 | disposition home or self-care (01) ==
LOC: CHSIMG 14:27
PROVIDERS: PCP Internal Medicine; Visit Provider Internal Medicine
DX: I44.1 Atrioventricular block, second degree (principal); I08.2 Rheumatic disorders of both aortic and tricuspid valves
CPT/HCPCS: 93306

== ENCOUNTER 2024-02-26 02:58 | Emergency (ER) | payer MEDICARE, SELFPAY ==
[2024-02-26] VITALS (8 sets, daily range): BP systolic 126–186; BP diastolic 65–80; PULSE 47–55; RESP 14–18; TEMP 36.3; O2SAT 92–96
--- NOTE | ~2024-02-26 | CT_ITS ---
Non-contrast CT scan of the Abdomen and Pelvis Clinical indication: Left flank pain Technique: 2.5 mm axial scans were obtained through the abdomen and pelvis without intravenous or or al contrast. Dose reduction technique was used on this scan by utilizing automated exposure control a nd iterative reconstruction technique. The dose-length product (DLP) was 1065.20 mGy-cm. COMPARISON: 01/17/2022 Findings: Images through the lung bases reveal small calcified pleural plaques. There is a 3.5 mm distal left ureteral stone (axial image 44), with mild hydroureteronephrosis to thi s level. There are probable left parapelvic renal cysts, as well as additional right renal cysts. The re is additional 7 mm nonobstructing left renal stone. No right renal or ureteral stone. No right hyd ronephrosis. Stable small left hepatic lobe cysts. The spleen, pancreas, gallbladder, and adrenals appear normal. There is no aortic aneurysm. There is no evidence of bowel obstruction. Images through the pelvis were performed. There is no evidence of ascites or lymphadenopathy. Urinary bladder unremarkable. Prostate gland is significantly enlarged. Small fat-containing left inguinal h ernia present. Impression: 3.5 mm distal left ureteral stone with mild left hydroureteronephrosis. Additional 7 mm nonobstructing left renal stone. Renal cysts, as above. Enlarged prostate gland. Reviewed, dictated and finalized at [facility]. Impression: 3.5 mm distal left ureteral stone with mild left hydroureteronephrosis. Additional 7 mm nonobstructing left renal stone. Renal cysts, as above. Enlarged prostate gland.
--- NOTE | 2024-02-26 03:18 | ED.ABDPAIN ---
HPI - Abdominal Pain General Chief Complaint: Urogenital-Male Stated Complaint: Kidney Stone History of Present Illness HPI narrative: 73-year-old white male with a history of hypercholesterolemia, hypertension, previous kidney stone, presents with onset of left flank pain about 6 hours ago. It came on slowly, but then gradually worsened, and has now been a 10/10, colicky in nature, very intense, cannot find a comfortable position, nothing makes it better, nothing makes it worse. denies diaphoresis, nausea or vomiting. Feels like the kidney stone that he had Previously. denies any recent fever, chills, sinus drainage, sore throat, cough, chest pain, shortness breast, palpitations, near-syncope or syncope. Related Data Home Medications Medication Instructions Recorded Confirmed ascorbic acid (vitamin C) 500 mg 500 mg PO DAILY 12/20/21 02/26/24 tablet multivitamin 1 tablet PO DAILY 12/20/21 02/26/24 omega-3 fatty acids 1,000 mg PO DAILY 12/20/21 02/26/24 rosuvastatin 10 mg tablet 10 mg PO QPM 12/20/21 02/26/24 escitalopram oxalate 20 mg tablet 20 mg PO DAILY 12/15/23 02/26/24 losartan 25 mg tablet 25 mg PO DAILY 12/15/23 02/26/24 Allergies Allergy/AdvReac Type Severity Reaction Status Date / Time IVP dye Allergy Intermediate Redness of Uncoded 01/30/24 13:11 Skin Review of Systems Review of Systems: All systems reviewed & are unremarkable except as noted in HPI and below ( HPI) [facility] Past Medical History Medical History (Updated 02/26/24 @ 06:47 by Chiki Merida MD) Depression HLD (hyperlipidemia) Ureteral calculus Social History Social History Smoking status: Never smoker Additional smoking assessment comments: DENIES ANY FORM OF TOBACCO USE Alcohol intake: never Substance use: never Substance use type: does not use Living arrangements: with family Spiritual care concerns: No Exam Narrative: pleasant, grimacing, appears in severe pain, good historian, appropriately interactive, Const: General: cooperative, healthy appearing, comfortable, no acute distress, well developed, alert, awake and Physically active Orientation/consciousness: patient oriented x3 HENMT: Head: normal to inspection, normocephalic and atraumatic Ears: hearing grossly normal bilaterally and external ears normal Face/Nose/Sinus: Normal external nose present, Normal nares present, Normal nasal mucous membranes and turbinates present and normal facial exam Face and sinus: normal facial exam Mouth: Yes Normal oral and palatal mucosa present, Yes lip normal, Yes tongue normal, Yes oropharynx normal and Yes moist mucous membranes Teeth and gingiva: dentition normal Throat: posterior oropharynx normal and tonsils normal ( erythematous) Eyes: General: appearance normal, both eyes and all related structures Alignment and Position: alignment normal and position normal Periorbital: periorbital findings normal Eyelids: eyelids normal Conjunctivae: conjunctivae normal Sclera: sclerae normal Cornea: corneas normal Pupils: Equal, round and reactive pupils present EOM: EOMs intact bilaterally Neck: Neck: normal visual inspection, full ROM and no lymphadenopathy Chest: Chest palpation & inspection: normal inspection of the chest Resp: Effort & Inspection: normal respiratory effort, able to speak in complete sentences, no audible wheezes, no respiratory distress and no use of accessory muscles Auscultation: clear to auscultation bilaterally Cardio: Jugular venous distension: no JVD Rate: regular rate Rhythm: regular rhythm GI: Inspection: normal to inspection GI Palp: No abdominal tenderness, No Tenderness to palpation present (GI), No Guarding due to palpation present (GI), No No hepatosplenomegaly present, No Palpable mass present and No Rebound tenderness present Other: mildly obese Skin: General skin exam: normal color, no rashes or lesion
--- NOTE | 2024-02-26 03:19 | PC.NURSE ---
transported to ct via wheel chair
[2024-02-26 03:22] LABS: Basophils Absolute Auto 0.02 K/mm3 (0.00-0.10); Basophils Percent Auto 0.3 % (0.0-1.0); Eosinophils Percent Auto 3.2 % (1.0-6.0); Hematocrit 42.5 % (37.0-46.0); Hemoglobin 14.9 g/dL (12.4-15.3); Immature Granulocyte Absolute 0.02 K/mm3 (0.00-0.00); Immature Granulocyte Percent A 0.3 % (0.0-0.0); Lymphocytes Absolute Auto 1.18 K/mm3 (1.10-4.50); Lymphocytes Percent Auto 18.8 % (18.0-42.0); Mean Corpuscular HGB Conc 35.1 g/dL (32-36); Mean Corpuscular Hemoglobin 34.1 pg (27.0-31.0); Mean Corpuscular Volume 97.3 fL (78.0-102.0); Mean Platelet Volume 9.8 fl (8.7-11.0); Monocytes Absolute Auto 0.66 K/mm3 (0.10-0.90); Monocytes Percent Auto 10.5 % (2.0-11.0); Neutrophils Absolute Auto 4.18 K/mm3 (1.70-7.20); Neutrophils Percent Auto 66.9 % (50.0-70.0); Platelet Count Result 154 K/mm3 (150-420); Red Blood Count 4.37 M/mm3 (4.70-6.10); Red Cell Distribution Width 12.2 % (11.6-14.4); White Blood Count 6.3 K/mm3 (4.8-10.8)
[2024-02-26] MEDS: ONDANSETRON INJ 4 MG/2 ML VIAL IV PUSH (03:30)
[2024-02-26] MEDS: fentaNYL CITRATE INJ (*CRX) 100 MCG/2 ML VIAL IV PUSH (03:30)
[2024-02-26] MEDS: LACTATED RINGERS 1,000 ML 999 ML IV CONT (03:30)
[2024-02-26] MEDS: KETOROLAC 30 MG/ML VIAL (*BKC) IV PUSH (03:30)
[2024-02-26 03:36] LABS: Alanine Aminotransferase 13 U/L (16-63); Albumin Level 3.5 g/dL (3.4-5.0); Alkaline Phosphatase 64 U/L (46-116); Anion Gap 9 mmol/L (4-12); Aspartate Amino Transferase 16 U/L (15-37); Bilirubin,Total 0.6 mg/dL (0.00-1.00); Blood Urea Nitrogen 10 mg/dL (7-18); Calcium 8.6 mg/dL (8.5-10.1); Carbon Dioxide 28 mmol/L (21-32); Chloride 103 mmol/L (98-108); Estimated CRCL calculation 62 ml/min; Estimated Glomerular Filt Rate > 60; Glucose 122 mg/dL (70-99); Osmolality Calculated 290 mOsm/kg (285-295); Potassium 3.9 mmol/L (3.5-5.1); Sodium 140 mmol/L (136-145); Total Protein 6.7 g/dL (6.4-8.2)
--- NOTE | 2024-02-26 03:36 | PC.NURSE ---
offered blanket. does not want one at this time. lights turned off. call light in reach. urinal at the bedside.
--- NOTE | 2024-02-26 04:30 | PC.NURSE ---
patient is resting quietly on stretcher. appears to be sleeping. resp even and unlabored. call light and urinal are in reach.
--- NOTE | 2024-02-26 05:30 | PC.NURSE ---
patient is resting on stretcher. reports that his pain is under control at this time. continue to wait for ct results. denies any other needs. urinal and call light at the bedside
--- NOTE | 2024-02-26 06:32 | PC.NURSE ---
ER provider updated patient with ct results. strainer and urine cup taken into room.
[2024-02-26] MEDS: oxyCODONE/ACETAMINOPHEN (*CRX) 10-325 MG TABLET 1 TAB PO (07:06)
== END 2024-02-26 07:15 | disposition home or self-care (01) ==
PROVIDERS: Emergency Provider Emergency Medicine; PCP Internal Medicine
DX: N20.2 Calculus of kidney with calculus of ureter (principal); I10 Essential (primary) hypertension; E78.5 Hyperlipidemia, unspecified; Z79.899 Other long term (current) drug therapy
CPT/HCPCS: 36415; 74176; 80053; 85025; 96361; 96374; 96375; 99284; A9270; J1885; J2405; J3010; J7120

== ENCOUNTER 2024-03-16 13:09 | Outpatient (CLI) | payer MEDICARE, SELFPAY ==
--- NOTE | ~2024-03-16 | US_ITS ---
EXAMINATION: US retroperitoneal comp DATE: 03/16/2024 13:51 INDICATION: Ureteral calculus TECHNIQUE: Multiple ultrasound grayscale images of the kidneys were obtained. COMPARISON: CT dated 02/26/2024 FINDINGS: The right kidney measures 13.4 x 5.6 x 6.2 cm. The left kidney measures 12.6 x 5.3 x 5.7 cm. The kidn eys demonstrate normal echogenicity. There are bilateral renal cysts with 3 cysts measuring up to 6.7 , 4.6 and 4.0 cm maximal diameters and one on the left measuring up to 2.8 cm in maximal diameter. Th ere is no hydronephrosis in either kidney. Unchanged 6 mm shadowing stone at the mid left kidney. Pro statomegaly measuring 5.6 x 5.1 x 4.5 cm with lobular cephalad margin impressing upon the base of the otherwise normal bladder. IMPRESSION: 1. Bilateral renal cysts and 6 mm nonobstructing left renal stone. No hydronephrosis. Reviewed, dictated and finalized at [facility]. IMPRESSION: 1. Bilateral renal cysts and 6 mm nonobstructing left renal stone. No hydronep hrosis.
--- NOTE | ~2024-03-16 | XR_ITS ---
XR abdomen/kub 1V Ordering provider: Cecilia Galeas PA-C History: . left ureteral stone . Comparison: September 10, 2022 FINDINGS: BOWEL: Nonobstructive bowel gas pattern. ORGANOMEGALY: None. SIGNIFICANT PATHOLOGIC CALCIFICATIONS: Stone in the left kidney upper pole is demonstrated. OTHER: No free air is seen under the diaphragm. IMPRESSION: NO ACUTE ABDOMINAL FINDINGS. Stone in the left kidney upper pole. Reviewed, dictated and finalized at [facility].
== END 2024-03-16 13:10 | disposition home or self-care (01) ==
LOC: CHSIMG 13:12
PROVIDERS: PCP Internal Medicine; Visit Provider Physician Assistant
DX: N20.1 Calculus of ureter (principal); N20.0 Calculus of kidney
CPT/HCPCS: 74018; 76770

== ENCOUNTER 2024-03-20 08:47 | Outpatient (CLI) | payer MEDICARE, SELFPAY ==
--- NOTE | ~2024-03-20 | CT_ITS ---
Clinical Indication: Asbestosis CT Scan of the Chest with Contrast: Technique: Contiguous sections were acquired throughout the chest after intravenous administration of 75 cc of Omnipaque 350. Dose reduction technique was used on this scan by utilizing automated exposu re control and iterative reconstruction technique. The dose-length product (DLP) was 355.71 mGy-cm. COMPARISON: 03/18/2023 Findings: There is no evidence of any significant mediastinal, hilar or axillary lymphadenopathy. There is no f illing defect in the pulmonary arterial tree to suggest pulmonary embolus. There is no evidence of ao rtic dissection or aneurysm. There is no evidence of pleural or pericardial effusion. Stable calcified pleural plaques. The lungs are clear. No pulmonary nodules or infiltrates are noted. Images through the upper abdomen reveal stable hepatic and renal cysts. Impression: Stable calcified pleural plaques. No other significant abnormality. Reviewed, dictated and finalized at [facility]. Impression: Stable calcified pleural plaques. No other significant abnormality.
== END 2024-03-20 08:48 | disposition home or self-care (01) ==
LOC: CHSIMG 08:49
PROVIDERS: PCP Internal Medicine; Visit Provider Internal Medicine
DX: J61 Pneumoconiosis due to asbestos and other mineral fibers (principal); J92.9 Pleural plaque without asbestos
CPT/HCPCS: 71260; Q9967

== ENCOUNTER 2024-04-07 08:07 | Outpatient (CLI) | payer MEDICARE, SELFPAY ==
--- NOTE | 2024-04-07 08:22 | ECG_ITS ---
Test Date: 2024-04-07 08:34:34 Measurements Intervals [place] Rate: 58 P: 46 WI: 256 QRS: 56 QRSD: 97 T: 60 QT: 426 QTc: 421 Interpretive Statements SINUS BRADYCARDIA WITH FIRST DEGREE AV BLOCK NONSPECIFIC ST & T-WAVE ABNORMALITY No previous ECG available for comparison Electronically Signed On 04-07-2024 10:11:24 CDT by Blessing Rivera M.D.
[2024-04-07 08:38] LABS: Partial Thromboplastin Time 26.5 Sec (23.9-30.70); Prothrombin Time 10.8 Seconds (9.50-12.1)
== END 2024-04-07 08:08 | disposition home or self-care (01) ==
LOC: CHSLAB 08:10
PROVIDERS: PCP Internal Medicine; Visit Provider Urology
DX: Z01.818 Encounter for other preprocedural examination (principal); I44.1 Atrioventricular block, second degree; N20.1 Calculus of ureter; R00.1 Bradycardia, unspecified
CPT/HCPCS: 36415; 85610; 85730; 87086; 93005

== ENCOUNTER 2024-04-10 00:57 | Day surgery (SDC) | payer MEDICARE, SELFPAY ==
[2024-04-03 10:47] VITALS: BMI 31.4
--- NOTE | 2024-04-03 11:10 | PC.NURSE ---
Report to the Outpatient Waiting Room, entrance under the green pavilion located off [facility], at time ___10:00AM____ on date __04/10/24 . Planned Procedure Time: __12:00PM . Time changes happen often and if your time is changed the preop area will call you the afternoon before. - You and your visitor will be asked to self-screen and do not enter if you have any COVID symptoms. - A mask is optional within the hospital at this time. Patients may have clear liquids (water, carbonated beverages, clear teas, apple juice) until 3 hours prior to surgery with a maximum of 20 ounces. 9:00AM - No food from midnight until time of surgery. Take the following medications with a SIP of water the morning of surgery: ESCITALOPRAM. MAY TAKE HYDROCODONE & ONDANSETRON NEEDED. DO NOT STOP ANY OF YOUR OTHER PRESCRIPTION MEDICATIONS PRIOR TO SURGERY ?EXCEPT THE FOLLOWING Medications to discontinue per physician ___HOLD ALL VITAMINS/SUPPLEMENTS 3 DAYS PRE-OP PER ANESTHESIA- LAST DOSE 04/06/24. HOLD OMEGA 3/FISH OIL PER DR ORTIZ. Please no make-up, nail lithuanian, hairspray, perfume, deodorant, or body powder the day of surgery. No jewelry (including any body piercings) or valuables the day of surgery, leave them at home. Please take a shower or bath the night before, or the morning of, surgery with an antibacterial soap. Wear comfortable, loose fitting clothing. - Jewelry must be removed prior to entering the operating room. Rings and piercings that are not removed may be cut off. - The hospital will not accept responsibility for valuables. - Please leave all valuables, including medications, at home the day of surgery. If you are going home after surgery, a licensed auto [place]ulaway driver must drive you home. - NO public transportation without another adult if you receive anesthesia. - We recommend that an adult stay with you for 24 hours following discharge. - We also recommend that you do not drive, make important decision, drink alcoholic beverages, or take any drugs that were not prescribed by your health care provider for at least 24 hours after your discharge time. Follow any additional instructions given to you from your surgeon. If you or anyone in your household have experienced Covid symptoms in the past week, please notify your surgeon or the nurse liaison at the phone number below for possible testing. Telephone instructions given to ____PATIENT and asked if any additional questions and then verbalized understanding. Patient advised to call surgeon office or pre surgery nurse liaison [phone] if any additional questions.
[2024-04-10] VITALS (8 sets, daily range): BP systolic 113–179; BP diastolic 63–74; PULSE 52–67; RESP 14–20; TEMP 36.2; O2SAT 94–100
--- NOTE | ~2024-04-10 | XR_ITS ---
EXAMINATION: XR abdomen/kub 1V DATE: 04/10/2024 08:38 INDICATION: Kidney stones. TECHNIQUE: A supine view of the abdomen on 2 radiographs was obtained. COMPARISON: CT abdomen and pelvis 02/26/2024 FINDINGS: There are no dilated loops of bowel. There is a 6 mm stone in left kidney. IMPRESSION: 1. 6 mm stone in left kidney. Reviewed, dictated and finalized at location A.
--- NOTE | 2024-04-10 05:50 | WPDHPUPDATE1 ---
History and Physical Update Update Date/Time: 04/10/24 05:50 History and Physical has been reviewed, including an updated exam of the patient. There are NO changes in the patient's condition. Risks, benefits, and alternatives have been discussed and questions answered. Patient agrees to proceed with procedure.
--- NOTE | 2024-04-10 09:20 | WPDANESEPPF ---
Anes - Initial Pre Proc Eval Procedure: Operation Date: 04/10/24 10:30 Proposed Procedures p Left Ureteral Extracorporeal Shock Wave Lithotripsy - Nishant Rivera MD Date/Time: 04/10/24 09:20 Surgeon: Nishant Rivera MD Pre Op Diagnosis: left ureteral kidney stone Patient Data Age: 73 Gender: M Height: 1.7 m Weight: 91 kg Allergies Allergy/AdvReac Type Severity Reaction Status Date / Time IVP dye Allergy Intermediate Redness of Uncoded 04/03/24 10:42 Skin, RASH Home Medications Medication Instructions Recorded Confirmed Type ascorbic acid (vitamin C) 500 mg 500 mg PO DAILY 12/20/21 04/03/24 History tablet multivitamin 1 tablet PO DAILY 12/20/21 04/03/24 History omega-3 fatty acids 1,000 mg PO DAILY 12/20/21 04/03/24 History rosuvastatin 10 mg tablet 10 mg PO QPM 12/20/21 04/03/24 History escitalopram oxalate 20 mg tablet 20 mg PO DAILY 12/15/23 04/03/24 History losartan 25 mg tablet 25 mg PO DAILY 12/15/23 04/03/24 History tamsulosin 0.4 mg capsule (Flomax) 0.4 mg PO DAILY 14 days #14 caps 12/15/23 04/03/24 Rx hydrocodone 5 mg-acetaminophen 325 1 tablet PO Q6H PRN pain #20 tabs 02/26/24 04/03/24 Rx mg tablet ondansetron 4 mg disintegrating 4 mg PO Q6H PRN nausea and 02/26/24 04/03/24 Rx tablet vomiting #20 tabs Patient hx anesthesia problems: none Family hx anesthesia problems: none Results Review: All pre-operative results and documents have been reviewed as part of the pre-operative evaluation. [facility] Past Medical History Medical History (Updated 02/27/24 @ 00:00 by Aiden Guerin) Depression HLD (hyperlipidemia) Ureteral calculus Social History Social History Smoking status: Never smoker Additional smoking assessment comments: DENIES ANY FORM OF TOBACCO USE Alcohol intake: never Substance use: never Substance use type: does not use Living arrangements: with family Additional living arrangements comments: Spiritual care concerns: No Anes - Eval Final PreProcedure Day of Procedure 04/10/24 09:20 Patient weight: obese Heart: regular rate and rhythm Lungs: clear to auscultation Airway: Mallampati scale class II Neurological: alert and oriented Last oral intake: >/= 8 hours ASA classification: III Emergent: no Anesthetic plan: proceed Anesthesia type and monitoring: general LMA and standard monitoring Results Review: All pre-operative results and documents have been reviewed as part of the pre-operative evaluation. Informed Consent: The patient's anesthetic plan and its attendant risks and benefits were discussed with the patient/family/POA. Questions were solicited and answers provided to the satisfaction of the patient/family/POA.
[2024-04-10] MEDS: LACTATED RINGERS 1,000 ML 30 ML IV CONT ×2 (09:30→11:41)
[2024-04-10] MEDS: ceFAZolin 2 GM/D5W 50 ML 2 GM/50 ML BAG IVPB (10:34)
--- NOTE | 2024-04-10 10:58 | W.PM.PROC2 ---
Procedure Note - Detailed Date of Procedure 04/10/24 Pre-op Diagnosis Left kidney stone Post-op Diagnosis Same Procedure Performed Left ESWL Surgeon Nishant Rivera MD Anesthesia General Description of Procedure The patient was brought to the operative suite where he was placed in the supine position on the Dornier lithotripsy table. The focal point of the lithotripter was placed at a 5-6mm left upper pole calculus. A total of 2500 shocks were delivered at a power setting of 4. There appeared to be good fragmentation of the stone. The patient tolerated the procedure well and was taken to the recovery room in good condition. Drains No Packing No Pathology None sent Complications No immediate complications Disposition PACU
[2024-04-10] MEDS: KETOROLAC 15 MG/ML VIAL (*BKC) IV PUSH (11:16)
== END 2024-04-10 12:50 | disposition home or self-care (01) ==
PROVIDERS: PCP Internal Medicine; Visit Provider Urology
PROC: (CPT 50590; principal; 2024-04-10 10:30)
DX: N20.0 Calculus of kidney (principal); E78.00 Pure hypercholesterolemia, unspecified; F32.A Depression, unspecified; E66.9 Obesity, unspecified; Z68.32 Body mass index [BMI] 32.0-32.9, adult; Z79.891 Long term (current) use of opiate analgesic; Z98.890 Other specified postprocedural states; Z87.891 Personal history of nicotine dependence; Z80.0 Family history of malignant neoplasm of digestive organs; Z82.49 Family history of ischemic heart disease and other diseases of the circulatory system
CPT/HCPCS: 50590; 74018; J0690; J1885; J2250; J2405; J2704; J3010; J7120

== ENCOUNTER 2024-05-06 09:49 | Outpatient (CLI) | payer MEDICARE, SELFPAY ==
--- NOTE | ~2024-05-06 | XR_ITS ---
EXAMINATION: XR abdomen/kub 1V DATE: 05/06/2024 10:15 INDICATION: Kidney stone. TECHNIQUE: A supine view of the abdomen on 2 radiographs was obtained. COMPARISON: Abdomen radiographs 04/10/2024, CT abdomen and pelvis 02/26/2024 FINDINGS: There are no dilated loops of bowel. There is no visible urolithiasis. IMPRESSION: 1. No visible urolithiasis. Reviewed, dictated and finalized at location A. IMPRESSION: 1. No visible urolithiasis.
== END 2024-05-06 09:50 | disposition home or self-care (01) ==
PROVIDERS: PCP Internal Medicine; Visit Provider Urology
DX: N20.0 Calculus of kidney (principal)
CPT/HCPCS: 74018

== ENCOUNTER 2024-07-15 07:09 | Outpatient (CLI) | payer MEDICARE, SELFPAY ==
[2024-07-15 07:21] LABS: Hematocrit 42.6 % (37.0-46.0); Hemoglobin 14.9 g/dL (12.4-15.3); Mean Corpuscular Hemoglobin 33.7 pg (27.0-31.0); Mean Corpuscular Volume 96.4 fL (78.0-102.0); Mean Platelet Volume 9.6 fl (8.7-11.0); Platelet Count Result 166 K/mm3 (150-420); Red Blood Count 4.42 M/mm3 (4.70-6.10); Red Cell Distribution Width 12.2 % (11.6-14.4); White Blood Count 4.9 K/mm3 (4.8-10.8)
[2024-07-15 07:37] LABS: Add Urine Microscopic? NO; Appearance Urine Clear (Clear); Bilirubin Urine Negative (Negative); Blood Urine Negative (Negative); Color Urine Yellow (Yellow); Glucose Urine UA Negative (Negative); Ketones Urine Negative (Negative); Leukocyte Esterase Ur Negative LEU/UL (Negative); Nitrate Urine Negative (Negative); Protein Urine Negative (Negative); Urobilinogen Urine 0.2 mg/dL (0.2-1.0); pH Urine 5.5 (5.0-8.0)
[2024-07-15 07:42] LABS: Hemoglobin A1C 5.5 % (<5.7)
[2024-07-15 08:21] LABS: Alanine Aminotransferase 33 U/L (16-63); Albumin Level 3.6 g/dL (3.4-5.0); Alkaline Phosphatase 63 U/L (46-116); Anion Gap 6 mmol/L (4-12); Aspartate Amino Transferase 17 U/L (15-37); Bilirubin,Total 0.6 mg/dL (0.00-1.00); Blood Urea Nitrogen 13 mg/dL (7-18); Calcium 8.8 mg/dL (8.5-10.1); Carbon Dioxide 31 mmol/L (21-32); Chloride 107 mmol/L (98-108); Cholesterol 146 mg/dL (0-200); Creatine Kinase 99 U/L (39-308); Estimated Glomerular Filt Rate > 60; Glucose 106 mg/dL (70-99); HDL Direct 37 mg/dL (40-60); LDL Cholesterol Calculated 76 mg/dL (<130); Osmolality Calculated 298 mOsm/kg (285-295); Potassium 4.9 mmol/L (3.5-5.1); Sodium 144 mmol/L (136-145); Total Protein 6.5 g/dL (6.4-8.2); Triglycerides 164 mg/dL (0-150)
[2024-07-15 08:55] LABS: Prostate Specific Antigen 4.4 ng/mL (< OR = 4.0)
== END 2024-07-15 07:10 | disposition home or self-care (01) ==
LOC: CHSLAB 07:10
PROVIDERS: PCP Internal Medicine; Visit Provider Internal Medicine
DX: R97.20 Elevated prostate specific antigen [PSA] (principal); E78.2 Mixed hyperlipidemia; R73.01 Impaired fasting glucose; N39.0 Urinary tract infection, site not specified
CPT/HCPCS: 36415; 80053; 80061; 81003; 82550; 83036; 84153; 85027

== ENCOUNTER 2024-11-02 07:02 | Outpatient (CLI) | payer MEDICARE, SELFPAY ==
[2024-11-04 14:23] LABS: PSA, Free 1.2 ng/mL; PSA, Total 4.7 ng/mL (< OR = 4.0); Percent Free Prostate Spec Ag 26 % (calc) (>25)
== END 2024-11-02 07:03 | disposition home or self-care (01) ==
LOC: CHSLAB 07:03
PROVIDERS: PCP Internal Medicine; Visit Provider Internal Medicine
DX: R97.20 Elevated prostate specific antigen [PSA] (principal)
CPT/HCPCS: 36415; 84153; 84154

== ENCOUNTER 2024-11-30 13:33 | Outpatient (CLI) | payer MEDICARE, SELFPAY ==
--- NOTE | ~2024-11-30 | XR_ITS ---
Supine and upright views of the abdomen Clinical history: Kidney stone COMPARISON: 05/06/2024 Findings: Bowel gas pattern is nonspecific. No evidence for obstruction or free air. No abnormal mass lesion or calcification is seen. Osseous structures are intact. Impression: No significant abnormality is seen. Reviewed, dictated and finalized at [facility]. Impression: No significant abnormality is seen.
== END 2024-11-30 13:34 | disposition home or self-care (01) ==
PROVIDERS: PCP Internal Medicine; Visit Provider Urology
DX: N20.0 Calculus of kidney (principal)
CPT/HCPCS: 74018

== ENCOUNTER 2025-04-08 08:43 | Outpatient (CLI) | payer MEDICARE, SELFPAY ==
--- NOTE | ~2025-04-08 | CT_ITS ---
Clinical Indication: Asbestosis CT Scan of the Chest with Contrast: Technique: Contiguous sections were acquired throughout the chest after intravenous administration of 75 cc of Omnipaque 350. Dose reduction technique was used on this scan by utilizing automated exposure control and iterative reconstruction technique. The dose-length product (DLP) was 320.51 mGy-cm. COMPARISON: 03/20/2024 Findings: There is no evidence of any significant mediastinal, hilar or axillary lymphadenopathy. There is no filling defect in the pulmonary arterial tree to suggest pulmonary embolus. There is no evidence of aortic dissection or aneurysm. There is no evidence of pleural or pericardial effusion. Stable calcified pleural plaques. The lungs are clear. No pulmonary nodules or infiltrates are noted. Images through the upper abdomen reveal no abnormalities. Impression: Stable calcified pleural plaques, compatible with asbestos related pleural disease. Reviewed, dictated and finalized at [facility]. Impression: Stable calcified pleural plaques, compatible with asbestos related pleural dise ase.
[2025-04-08 09:17] LABS: Estimated Glomerular Filt Rate > 60
== END 2025-04-08 08:44 | disposition home or self-care (01) ==
PROVIDERS: PCP Internal Medicine; Visit Provider Internal Medicine
DX: J61 Pneumoconiosis due to asbestos and other mineral fibers (principal)
CPT/HCPCS: 71260; Q9967

== ENCOUNTER 2025-07-12 07:05 | Outpatient (CLI) | payer MEDICARE, SELFPAY ==
[2025-07-12 07:22] LABS: Hematocrit 46.6 % (37.0-46.0); Hemoglobin 15.7 g/dL (12.4-15.3); Mean Corpuscular HGB Conc 33.7 g/dL (32-36); Mean Corpuscular Hemoglobin 33.8 pg (27.0-31.0); Mean Corpuscular Volume 100.2 fL (78.0-102.0); Platelet Count Result 172 K/mm3 (150-420); Red Blood Count 4.65 M/mm3 (4.70-6.10); White Blood Count 5.0 K/mm3 (4.8-10.8)
[2025-07-12 07:24] LABS: Add Urine Microscopic? NO; Appearance Urine Clear (Clear); Glucose Urine UA Negative (Negative); Leukocyte Esterase Ur Negative (Negative); Nitrate Urine Negative (Negative); Specific Grav Ur 1.010 (1.010-1.020)
[2025-07-12 07:59] LABS: Alanine Aminotransferase 33 U/L (6-50); Albumin Level 4.5 g/dL (3.5-5.1); Alkaline Phosphatase 62 U/L (38-126); Anion Gap 8 mmol/L (4-12); Aspartate Amino Transferase 31 U/L (17-59); Bilirubin,Total 0.9 mg/dL (0.2-1.3); Blood Urea Nitrogen 12 mg/dL (9-20); Calcium 9.4 mg/dL (8.4-10.2); Carbon Dioxide 31 mmol/L (22-30); Chloride 105 mmol/L (98-107); Cholesterol 167 mg/dL (0-200); Estimated Glomerular Filt Rate > 60; Glucose 108 mg/dL (65-110); HDL Direct 39 mg/dL; Osmolality Calculated 298 mOsm/kg (285-295); Potassium 4.8 mmol/L (3.4-5.0); Sodium 144 mmol/L (137-145); Total Protein 6.9 g/dL (6.3-8.2); Triglycerides 191 mg/dL (<150)
[2025-07-12 08:12] LABS: Hemoglobin A1C 5.7 % (<5.7)
[2025-07-12 09:34] LABS: Prostate Specific Antigen 4.2 ng/mL (< OR = 4.0)
== END 2025-07-12 07:06 | disposition home or self-care (01) ==
PROVIDERS: PCP Internal Medicine; Visit Provider Internal Medicine
DX: I10 Essential (primary) hypertension (principal); R73.01 Impaired fasting glucose; R97.20 Elevated prostate specific antigen [PSA]; E78.2 Mixed hyperlipidemia
CPT/HCPCS: 36415; 80053; 80061; 81003; 83036; 84153; 85027